=== PATIENT | female | born 1945 | race Caucasian/White ===

== ENCOUNTER → 2016-12-10 | Outpatient (CLI) | payer OTHER ==
[~2016-12-10] MED LIST: ATOR10TA82 PO; CEPH500C2 PO; OXYC-57 PO; SULF800T23 PO; VALA1TAB31 PO; VLT500 PO
--- NOTE | 2016-12-10 16:30 | MAMMOGRAPHY REPORT ---
BILATERAL DIGITAL SCREENING MAMMOGRAM TOMOSYNTHESIS WITH CAD: 12/10/2016 CLINICAL HISTORY: Routine screening. Patient has no complaints. TECHNIQUE: Breast tomosynthesis in addition to standard 2D mammography was performed. Current study was also evaluated with a Computer Aided Detection (CAD) system. COMPARISON: Comparison is made to exams dated: 12/09/2015 mammogram, 12/12/2014 mammogram, 12/12/2014 ultrasound, 12/04/2014 mammogram, 12/03/2013 mammogram, and 11/29/2012 mammogram - [facility]. BREAST COMPOSITION: There are scattered areas of fibroglandular density in both breasts. FINDINGS: No suspicious masses, calcifications, or areas of architectural distortion are noted in e ither breast. There has been no significant interval change compared to prior exams. A linear scar marker denotes a scar on the left lateral breast. Again noted are fluctuating small circumscribed b enign-appearing masses in the right breast, not significantly changed and likely represent cysts. IMPRESSION: ACR BI-RADS CATEGORY 2: BENIGN There is no mammographic evidence of malignancy. A 1 year screening mammogram is recommended. The p atient will receive written notification of the results. Approximately 10% of breast cancers are not detected with mammography. A negative mammographic repor t should not delay biopsy if a clinically suggestive mass is present. Cassie Worley M.D. ah/:12/10/2016 14:55:18 Candy Dipper Hand: Suzanne MARINA)(Aaron), [facility] letter sent: Normal 1/2 BI-RADS Code: ACR BI-RADS Category 2: Benign
== END | disposition home or self-care (01) ==
LOC: C.MAMM 09:32
PROVIDERS: ATTEND Obstetrics & Gynecology
DX: Z12.31 Encounter for screening mammogram for malignant neoplasm of breast (principal)

== ENCOUNTER → 2017-03-30 | Outpatient (CLI) | payer OTHER | END | disposition home or self-care (01) | LOC: C.LABSPEC 16:28 | PROVIDERS: ATTEND Obstetrics & Gynecology | DX: R30.0 Dysuria (principal) ==

== ENCOUNTER 2017-06-05 12:32 | Emergency (ER) | payer OTHER ==
[~2017-06-05] VITALS: Ht 154.9 cm; Wt 55.9 kg
[2017-06-05 12:34] VITALS: BP 144/85; PULSE 104; TEMP 36.4; O2SAT 94; Ht 154.9 cm; Wt 55.9 kg
--- NOTE | 2017-06-05 13:01 | EMERGENCY ROOM VISIT NOTE ---
History Report prepared by Martina: Madeline Delgado Under the Supervision of: Dr. Nelson Oglesby M.D. First contact with patient: 12:43 Chief Complaint: OTHER COMPLAINT Stated Complaint: FACE PAIN,HEADACHE,SORE THROAT History of Present Illness The patient is a 71 year old female who presents to the Emergency Room with complaints of worsening right sided facial pain that started 3 days ago. The patient rates her pain an 8/10 in severity. The patient notes the pain "feels like a tooth ache". She states the pain is primarily around her eye. She notes she gets neuralgia every month. She reports she has also been having pain in her right ear. The patient states she is also experiencing a headache and sore throat. The patient notes she has a cough but it is there all the time secondary to sinus drainage. The patient denies any nausea, vomiting, chills, fever, abdominal pain, or blurred vision. Source of History: patient Onset: 3 days ago Position: eye (right), other (right sided facial pain) Symptom Intensity: 8/10 Quality: tingling Timing: worsening Associated Symptoms: + cough, No fevers, No chills, No nausea, No vomiting, No abdominal pain Note: The patient denies experiencing blurred vision. Review of Systems See HPI for pertinent positives and negatives. A total of ten systems were reviewed and were otherwise negative. Family History No pertinent family history Social History Smoking Status: Never Smoker Smokeless Tobacco Use: No Drug Use: none Current/Historical Medications Scheduled Atorvastatin (Lipitor), 1 TAB PO QPM Valacyclovir Hcl (Valtrex), 1 GM PO TID Allergies Coded Allergies: Bee Venom (Unverified Allergy, Unknown, UNKNOWN, 06/05/17) Erythromycin (Unverified Allergy, Unknown, UNKNOWN, 06/05/17) Penicillins (Unverified Allergy, Unknown, UNKNOWN, 06/05/17) Tetracycline (Unverified Allergy, Unknown, UNKNOWN, 06/05/17) Physical Exam Vital Signs Date Time Temp Pulse Resp B/P (MAP) Pulse Ox O2 Delivery O2 Flow Rate FiO2 06/05/17 12:34 36.4 104 20 144/85 94 Room Air Physical Exam GENERAL: Awake, alert, well-appearing, in no distress HENT:TMs and EACs are clear. EYES: Mild erythematous, scaly, patches to right upper eyelid and forehead with mild pain to light touch. No gross abnormalities of eye. Anterior chamber is grossly clear. NECK: Supple. No nuchal rigidity. FROM. No JVD. RESPIRATORY: Clear to auscultation. CARDIAC: Regular rate, normal rhythm. Extremities warm and well perfused. Pulses equal. ABDOMEN: Soft, non-distended. No tenderness to palpation. No rebound or guarding. No masses. RECTAL: Deferred. MUSCULOSKELETAL: Chest examination reveals no tenderness. The back is symmetrical on inspection without obvious abnormality. There is no CVA tenderness to palpation. No joint edema. LOWER EXTREMITIES: Calves are equal size bilaterally and non-tender. No edema. No discoloration. NEURO: Normal sensorium. No sensory or motor deficits noted. SKIN: No jaundice noted. Warm/dry. Rash per above Medical Decision & Procedures Medications Administered Medications (Trade) Dose Ordered Sig/Susanne Route Start Time Stop Time Status Last Admin Dose Admin Valacyclovir HCl (Valtrex Tab) 1,000 mg NOW ONCE PO 06/05/17 13:15 06/05/17 13:16 DC 06/05/17 13:29 1,000 MG ED Course 1243: The patient was evaluated in room A12B. A complete history and physical exam was performed. 1315: Valtrex Tab 1000 mg PO. 1330: I reevaluated the patient. Discussed results and discharge instructions: she verbalized understanding and agreement. The patient is ready for discharge. Medical Decision I reviewed the patient's past medical history, medications, and the nursing notes as described above. The patient's presentation and history were concerning for Zoster, cellulitis, dermatitis. The patient is a 89-year-old woman appears [facility] with persistent right facial neuralgia and development of a scaly erythematous rash on her right eyelid and forehead history of present illness. On arrival the patient is well-appearing, no acute distress, afebrile with stable vital signs. On exam she has mild tenderness to light touch of these erythematous patches. Thus given the patients history and exam ,findings are consistent with zoster. Patient denies any vision complaints at this time and right eye is without any gross abnormalities with anterior chamber grossly clear. Will treat with antiviral and outpatient follow-up closely with her doctor. Findings and plan for follow-up reviewed with patient. Patient agreeable and d/c'd per discharge instructions. Medication Reconcilliation Current Medication List: was personally reviewed by me Blood Pressure Screening Patient's blood pressure: Elevated blood pressure Blood pressure disposition: Elevated BP felt to be situational Impression Primary Impression: Zoster without complications Scribe Attestation The scribe's documentation has been prepared under my direction and personally reviewed by me in its entirety. I confirm that the note above accurately reflects all work, treatment, procedures, and medical decision making performed by me. Departure Information Dispostion Home / Self-Care Prescriptions Valacyclovir Hcl (VALTREX) 1 Gm Tab 1 GM PO TID, #21 TAB Prov: Nelson Oglesby M.D. 06/05/17 Referrals Alissa Smyth PA-C (PCP) Patient Instructions My [facility], Shingles Herpes Zoster Additional Instructions Please follow up with your primary care physician in the next 1-3 days for re- evaluation. You likely have shingles (herpes zoster) based on your description of symptoms and exam. You were treated and given prescription for valacyclovir to treat this. Otherwise, your exam did not show signs of an emergent condition at this time. Valacyclovir as directed. Return to the emergency department for worsening symptoms as described in the accompanying instructions.
[2017-06-05] MEDS ORDERED: VALA1TAB31 PO (13:08)
[2017-06-05] MEDS ORDERED: ATOR10TA82 PO (13:27)
== END 2017-06-05 13:32 | disposition home or self-care (01) ==
LOC: C.EDB 12:33 → C.EDA 13:32
DX: B02.39 Other herpes zoster eye disease (principal)

== ENCOUNTER 2017-06-13 10:55 | Inpatient (IN) | payer OTHER ==
[~2017-06-13] VITALS: Ht 154.9 cm; Wt 55.1 kg
[~2017-06-13 10:55] MED LIST changes: -CEPH500C2 PO; -OXYC-57 PO; -SULF800T23 PO; -VLT500 PO
[2017-06-13 11:57] LABS: BASO % 0.3 %; BASO ABS # 0.03 K/uL (0-0.2); COMPLETE YES; EOS % 0.7 %; HEMATOCRIT 42.2 % (37-47); IG% 0.4 %; LYMPH % 12.7 %; LYMPH ABS # 1.35 K/uL (1.2-3.4); MEAN CELL VOLUME 91.1 fL (80-100); MEAN CORPUSCULAR HEMOGLOBIN 31.3 pg (25-34); MEAN CORPUSCULAR HGB CONC 34.4 g/dl (32-36); MEAN PLATELET VOLUME 11.1 fL (7.4-10.4); MONO % 7.6 %; NEUT % 78.3 %; PLATELET COUNT 333 K/uL (130-400); RED BLOOD COUNT 4.63 M/uL (4.2-5.4); WHITE BLOOD COUNT 10.67 K/uL (4.8-10.8)
[2017-06-13] MEDS ORDERED: CEFTRIAXONE SOD INJ 1 GM ADDVIAL IV STA (11:57)
[2017-06-13] MEDS ORDERED: ATOR10TA82 PO (12:00)
[2017-06-13 12:17] LABS: BUN/CREATININE RATIO 8.8 (10-20); CALCIUM 8.8 mg/dl (8.5-10.1); CREATININE 1.25 mg/dl (0.60-1.20); POTASSIUM 3.2 mmol/L (3.5-5.1)
--- NOTE | 2017-06-13 13:07 | DIAGNOSTIC IMAGING REPORT ---
L HAND MIN 3 VIEWS ROUTINE CLINICAL HISTORY: Left first metacarpal swelling, pain and cellulitis. No recent trauma. COMPARISON: None FINDINGS: There is severe osteoarthritis of the left first carpometacarpal joint. There is also severe osteoarthritis within multiple interphalangeal joints of the left hand. No fracture or suspicious lesion is present. There is moderate radiocarpal joint space narrowing. Carpal bones are intact. Multifocal soft tissue calcifications are noted. IMPRESSION: 1. Severe osteoarthritis of the left first carpometacarpal joint. 2. Severe osteoarthritis within multiple interphalangeal joints of the left hand. This could reflect erosive osteoarthritis. 3. No acute fracture. Electronically signed by: Adrian Boone M.D. 06/13/2017 1:06 PM Dictated Date/Time: 06/13/2017 1:04 PM
[2017-06-13] MEDS ORDERED: ACETAMINOPHEN 325 MG TAB PO PRN (14:00)
[2017-06-13] MEDS ORDERED: KETOROLAC TROMETHAMINE 15 MG/ML VIAL IV. PRN (14:00)
[2017-06-13] MEDS ORDERED: OXYCODONE/ACETAMINOPHEN 5-325 TAB PO PRN (14:00)
[2017-06-13] MEDS ORDERED: ONDANSETRON INJ 2 MG/ML 2 ML VIAL IV PRN (14:00)
[2017-06-13] MEDS ORDERED: VANCOMYCIN CONSULT ACTIVE PRN (14:30)
[2017-06-13] MEDS ORDERED: VANCOMYCIN INJ 1,500 MG in SODIUM CHLORIDE 0.9% 500ML 500 ML IV ONE (14:30)
--- NOTE | 2017-06-13 15:05 | HISTORY & PHYSICAL EXAMINATION ---
DATE OF ADMISSION: 06/13/2017 REASON FOR ADMISSION: Left thumb cellulitis, rule out septic arthritis. HISTORY OF PRESENT ILLNESS: The patient is a 71-year-old white female known to our practice who states that she gets regular injections into her left MP joint from Dr. Guan and/or Chencho Mac PA-C for her arthritis. She states that her last injection was approximately 2-3 weeks ago and since that time, she was not having any problems; however, over the last week, she had developed a herpes zoster on the top of her head and forehead and almost down into her right eye. She had begun treatment for that on June 05 and it has been slowly getting better. She states, however, that she noticed some increased discomfort in the left thumb over the last several days and has been wearing a brace and/or glove for her left hand and thumb over the past. She states that when she took off the brace this morning that the thumb was very bright red and that she had difficulty moving the left thumb at the MP joint. She went into see her primary care physician, who is Frank Gilbert and at that point she noticed some red streaking up the forearm and had her come to the emergency room here to be seen. After examination and discussion with Dr. Guan, it was felt she should be admitted for IV antibiotics. PAST MEDICAL HISTORY: Hypercholesterolemia, osteoporosis, history of arthritis, breast cancer. PAST SURGICAL HISTORY: She has had breast biopsy and also carpal tunnel release with also repair of a lacerated tendon of the right hand by Dr. Guan in the past. FAMILY HISTORY: Noncontributory. SOCIAL HISTORY: The patient is a nonsmoker, does not drink alcohol. MEDICATIONS: She is currently taking atorvastatin 10 mg p.o. daily and she has also been prescribed Valtrex. ALLERGIES: BEE VENOM, ERYTHROMYCIN, PENICILLINS, TETRACYCLINE. REVIEW OF SYSTEMS: No recent fevers or chills or night sweats or unexplained weight loss or weight gain. She states that she does have a history of a postnasal drainage which she contributes to sinuses and that she has had a little bit of increased sputum production when she was being treated for her zoster; however, that seems to have abated. She denies any shortness of breath on exertion or at rest. No chest pain, chest pressure, irregular heartbeat. No abdominal pain. No unusual nausea, vomiting, diarrhea. No melena, hematochezia, hematemesis. No recent hematuria, pyuria, dysuria or renal calculi. No history of CVA, TIA. No seizure disorder. PHYSICAL EXAMINATION: VITAL SIGNS: Her latest vital signs showed pulse is 97, respirations 16, BP 140/81, pulse ox 98 on room air. GENERAL: The patient is a well-developed, well-nourished white female who is alert and oriented x3 and in no acute distress, pleasant and cooperative. SKIN: Warm and dry. Turgor is fair. EXTREMITIES: She has noted healing zoster rash over the top of her head coming down over the forehead and spreading a little bit to the right eyelid itself. She denies any severe pain at this time and denies any vision changes. HEENT: The head is otherwise normocephalic and atraumatic. There is no scleral icterus or injection. Nasal airway is patent. Oral mucosa is pink and moist. NECK: Supple. HEART: Regular rate and rhythm. LUNGS: Clear to auscultation. ABDOMEN: Soft, flat, nontender. Bowel sounds are present x4. GENITALIA AND RECTAL: Not performed at this time. EXTREMITIES: On examination of the patient's left upper extremity focusing on her hand, she has moderate erythema over the left thumb that stops just shy of the first DIP joint then goes proximally to almost the wrist and stops. She has erythema on the dorsum and also on the volar aspect and is quite tender on palpation. Passive extension and flexion cause her pain in the left MP joint. She states that it does not radiate up into the forearm. She does have good capillary refill and good sensation. Wrist range of motion is within normal limits without pain. Examination of the other 4 fingers is benign at this time and she has good range of motion and range of motion is limited with the thumb at this time, although she can move her DIP joint with some limited discomfort. She has some noted red streaking going up the forearm to the elbow. This area is nontender on palpation and is not overtly swollen. She has no pain in the elbow at this time and has good range of motion. Her right upper extremity is benign at this time and has range of motion within normal limits. Left shoulder is nontender on palpation and range of motion is within normal limits. Lower extremities are benign at this time. She has no gross motor or sensory deficits seen at this time other than noted decreased range of motion of the thumb due to cellulitis and infection. DIAGNOSIS: Cellulitis left thumb with rule out metaphalangeal joint septic arthritis. PLAN: I discussed the case with Dr. Guan who feels that it is best to have the patient admitted for IV antibiotics at this time and reassessment at 1024 hours. We will make her n.p.o. after midnight and if she is responding well to IV antibiotics, then likely she will not need to have any type of possible exploratory surgery of the joint; however, she continues to maintain the same pain or it worsens she will have to undergo irrigation and debridement of the left MP joint. ISABELLE
--- NOTE | 2017-06-13 15:18 | EMERGENCY ROOM VISIT NOTE ---
History First contact with patient: 11:37 Chief Complaint: INFECTION Stated Complaint: LEFT THUMB-IV ANTIBIOTICS NEEDED Nursing Triage Summary: Pt got up this morning and took arthritis brace off of left hand and found her left thumb to be reddened with red streaking going up her arm. Went to PCP was told she possibly had septic arthrits, told to come to ED for further eval. History of Present Illness The patient is a 71 year old female who presents to the Emergency Room with complaints of left hand pain and redness. The patient also notes the following associated symptoms, streaking up the forearm to above the elbow. This started yesterday and is worsening rapidly. The patient has found no relieving factors. She saw her PCP and was directed here. Pt denies LOC, headache, fevers, chills, diaphoresis, visual changes, neck pain, chest pain, breathing difficulties, nausea, vomiting, abdominal pain, back pain, melena, hematochezia , urinary symptoms, numbness, weakness, lymphadenopathy, or other complaints. Review of Systems See HPI for pertinent positives and negatives. A total of ten systems were reviewed and were otherwise negative. Past Medical/Surgical History Medical Problems: (1) Cellulitis of left thumb (2) rule out septic joint arthritis Family History No pertinent family history Social History Smoking Status: Never Smoker Drug Use: none Current/Historical Medications Scheduled Atorvastatin (Lipitor), 10 MG PO QDD Physical Exam Vital Signs Date Time Temp Pulse Resp B/P (MAP) Pulse Ox O2 Delivery O2 Flow Rate FiO2 06/13/17 14:43 104 16 154/100 95 Room Air 06/13/17 13:42 97 06/13/17 13:35 98 16 140/81 98 Room Air 06/13/17 12:21 80 20 120/64 94 Room Air 06/13/17 11:03 36.5 107 18 134/74 92 Room Air Physical Exam GENERAL: Awake, alert, well-appearing, in no distress HENT: Normocephalic, atraumatic. Oropharynx unremarkable. EYES: Normal conjunctiva. Sclera non-icteric. NECK: Supple. No nuchal rigidity. FROM. No JVD. RESPIRATORY: Clear to auscultation. CARDIAC: Regular rate, normal rhythm. Extremities warm and well perfused. Pulses equal. ABDOMEN: Soft, non-distended. No tenderness to palpation. No rebound or guarding. No masses. RECTAL: Deferred. MUSCULOSKELETAL: Chest examination reveals no tenderness. There is tenderness and swelling over the left first metacarpal and carpal metacarpal joint. Range of motion of the left thumb is limited. Neurovascular intact. No open wounds. There is streaking up the left forearm to above the left antecubital fossa. LOWER EXTREMITIES: Calves are equal size bilaterally and non-tender. No edema. No discoloration. NEURO: Normal sensorium. No sensory or motor deficits noted. SKIN: No petechia, purpura, vesicles, bullae or jaundice noted. Medical Decision & Procedures ER Provider Diagnostic Interpretation: L HAND MIN 3 VIEWS ROUTINE CLINICAL HISTORY: Left first metacarpal swelling, pain and cellulitis. No recent trauma. COMPARISON: None FINDINGS: There is severe osteoarthritis of the left first carpometacarpal joint. There is also severe osteoarthritis within multiple interphalangeal joints of the left hand. No fracture or suspicious lesion is present. There is moderate radiocarpal joint space narrowing. Carpal bones are intact. Multifocal soft tissue calcifications are noted. IMPRESSION: 1. Severe osteoarthritis of the left first carpometacarpal joint. 2. Severe osteoarthritis within multiple interphalangeal joints of the left hand. This could reflect erosive osteoarthritis. 3. No acute fracture. Electronically signed by: Adrian Boone M.D. 06/13/2017 1:06 PM Dictated Date/Time: 06/13/2017 1:04 PM Laboratory Results 06/13/17 11:40 Red Blood Count 4.63, Mean Corpuscular Volume 91.1, Mean Corpuscular Hemoglobin 31.3, Mean Corpuscular Hemoglobin Concent 34.4, Mean Platelet Volume 11.1, Neutrophils (%) (Auto) 78.3, Lymphocytes (%) (Auto) 12.7, Monocytes (%) (Auto) 7.6, Eosinophils (%) (Auto) 0.7, Basophils (%) (Auto) 0.3, Neutrophils # (Auto) 8.36, Lymphocytes # (Auto) 1.35, Monocytes # (Auto) 0.81, Eosinophils # (Auto) 0.08, Basophils # (Auto) 0.03 06/13/17 11:40 Test 06/13/17 11:40 06/13/17 11:48 White Blood Count 10.67 K/uL (4.8-10.8) Red Blood Count 4.63 M/uL (4.2-5.4) Hemoglobin 14.5 g/dL (12.0-16.0) Hematocrit 42.2 % (37-47) Mean Corpuscular Volume 91.1 fL (80-100) Mean Corpuscular Hemoglobin 31.3 pg (25-34) Mean Corpuscular Hemoglobin Concent 34.4 g/dl (32-36) Platelet Count 333 K/uL (130-400) Mean Platelet Volume 11.1 fL (7.4-10.4) Neutrophils (%) (Auto) 78.3 % Lymphocytes (%) (Auto) 12.7 % Monocytes (%) (Auto) 7.6 % Eosinophils (%) (Auto) 0.7 % Basophils (%) (Auto) 0.3 % Neutrophils # (Auto) 8.36 K/uL (1.4-6.5) Lymphocytes # (Auto) 1.35 K/uL (1.2-3.4) Monocytes # (Auto) 0.81 K/uL (0.11-0.59) Eosinophils # (Auto) 0.08 K/uL (0-0.5) Basophils # (Auto) 0.03 K/uL (0-0.2) RDW Standard Deviation 42.6 fL (36.4-46.3) RDW Coefficient of Variation 12.9 % (11.5-14.5) Immature Granulocyte % (Auto) 0.4 % Immature Granulocyte # (Auto) 0.04 K/uL (0.00-0.02) Erythrocyte Sedimentation Rate 45 mm/hr (0-21) Anion Gap 8.0 mmol/L (3-11) Est Creatinine Clear Calc Drug Dose 32.0 ml/min Estimated GFR () 50.8 Estimated GFR (Non- 43.9 BUN/Creatinine Ratio 8.8 (10-20) Calcium Level 8.8 mg/dl (8.5-10.1) Total Bilirubin 0.7 mg/dl (0.2-1) Direct Bilirubin 0.2 mg/dl (0-0.2) Aspartate Amino Transf (AST/SGOT) 9 U/L (15-37) Alanine Aminotransferase (ALT/SGPT) 13 U/L (12-78) Alkaline Phosphatase 81 U/L (45-117) C-Reactive Protein 1.71 mg/dl (0-0.29) Total Protein 7.8 gm/dl (6.4-8.2) Albumin 3.6 gm/dl (3.4-5.0) Bedside Lactic Acid Venous 1.09 mmol/L (0.90-1.70) Medications Administered Medications (Trade) Dose Ordered Sig/Susanne Route Start Time Stop Time Status Last Admin Dose Admin Ceftriaxone Sodium (Rocephin Inj) 1 gm NOW STAT IV 06/13/17 11:57 06/13/17 11:59 DC 06/13/17 12:22 1 GM Vancomycin HCl 1500 mg/Sodium Chloride 530 ml @ 200 mls/hr NOW ONCE IV 06/13/17 14:30 06/13/17 17:08 06/13/17 14:46 200 MLS/HR Medical Decision Triage Nursing notes reviewed. The patient's presentation and history were concerning for swelling and redness in the hand. Etiologies such as cellulitis, septic joint, abscess, MRSA infection, dermatitis , drug eruption,necrotizing fasciitis, DVT as well as others were entertained. The patient was evaluated. Her findings were concerning for a cellulitis as well as arthritis. She had a previous injection in that site about 3 weeks ago by [facility]. Blood work was obtained. Cultures done. The patient was given a dose of IV Rocephin and tolerated this well. I did consult with Tucker Glover PA-C from [facility] and he evaluated the patient in the Emergency Room. He discussed the case with Dr. Mckeon and it was felt that the patient would be just treated coming into the hospital for IV antibiotics and further orthopedic consultation. Her CBC was unremarkable but she did have a left shift on differential. Inflammatory markers were elevated. Chemistry panel unremarkable. Patient felt comfortable with the plan. She was admitted for further treatment. Impression Primary Impression: Cellulitis of left thumb Additional Impression: rule out septic joint arthritis Departure Information Dispostion Being Evaluated By Surgeon Alissa Lazcano PA-C (PCP) Patient Instructions My [facility] Problem Qualifiers
[2017-06-13 15:30] VITALS: BP 164/77; PULSE 106; TEMP 36.4; O2SAT 95; Ht 154.9 cm; Wt 55.1 kg
--- NOTE | 2017-06-13 15:55 | Pharmacy Progress Note ---
Pharmacy Antibiotic Consult Date of Service: Jun 13, 2017. Pharmacy Dosing Scope Pharmacy is consulted to initiate vancomycin IV dosing therapy, order appropriate labs and adjust drug dose/frequency. Subjective The patient is a 71 year old female admitted on Jun 13, 2017 at 13:57. Objective Height (Feet): 5 Height (Inches): 1.00 Weight (Kilograms): 55.100 Lab Results (24hrs): Test 06/13/17 11:40 06/13/17 11:48 White Blood Count 10.67 K/uL (4.8-10.8) Red Blood Count 4.63 M/uL (4.2-5.4) Hemoglobin 14.5 g/dL (12.0-16.0) Hematocrit 42.2 % (37-47) Mean Corpuscular Volume 91.1 fL (80-100) Mean Corpuscular Hemoglobin 31.3 pg (25-34) Mean Corpuscular Hemoglobin Concent 34.4 g/dl (32-36) Platelet Count 333 K/uL (130-400) Mean Platelet Volume 11.1 fL (7.4-10.4) Neutrophils (%) (Auto) 78.3 % Lymphocytes (%) (Auto) 12.7 % Monocytes (%) (Auto) 7.6 % Eosinophils (%) (Auto) 0.7 % Basophils (%) (Auto) 0.3 % Neutrophils # (Auto) 8.36 K/uL (1.4-6.5) Lymphocytes # (Auto) 1.35 K/uL (1.2-3.4) Monocytes # (Auto) 0.81 K/uL (0.11-0.59) Eosinophils # (Auto) 0.08 K/uL (0-0.5) Basophils # (Auto) 0.03 K/uL (0-0.2) RDW Standard Deviation 42.6 fL (36.4-46.3) RDW Coefficient of Variation 12.9 % (11.5-14.5) Immature Granulocyte % (Auto) 0.4 % Immature Granulocyte # (Auto) 0.04 K/uL (0.00-0.02) Erythrocyte Sedimentation Rate 45 mm/hr (0-21) Sodium Level 141 mmol/L (136-145) Potassium Level 3.2 mmol/L (3.5-5.1) Chloride Level 103 mmol/L (98-107) Carbon Dioxide Level 30 mmol/L (21-32) Anion Gap 8.0 mmol/L (3-11) Blood Urea Nitrogen 11 mg/dl (7-18) Creatinine 1.25 mg/dl (0.60-1.20) Est Creatinine Clear Calc Drug Dose 32.0 ml/min Estimated GFR () 50.8 Estimated GFR (Non- 43.9 BUN/Creatinine Ratio 8.8 (10-20) Random Glucose 102 mg/dl (70-99) Calcium Level 8.8 mg/dl (8.5-10.1) Total Bilirubin 0.7 mg/dl (0.2-1) Direct Bilirubin 0.2 mg/dl (0-0.2) Aspartate Amino Transf (AST/SGOT) 9 U/L (15-37) Alanine Aminotransferase (ALT/SGPT) 13 U/L (12-78) Alkaline Phosphatase 81 U/L (45-117) C-Reactive Protein 1.71 mg/dl (0-0.29) Total Protein 7.8 gm/dl (6.4-8.2) Albumin 3.6 gm/dl (3.4-5.0) Bedside Lactic Acid Venous 1.09 mmol/L (0.90-1.70) Assessment & Plan Patient started on vancomycin for left thumb cellulitis, r/o septic arthritis. Blood cultures are pending. Received rocephin x 1 in ED Vancomycin: * LD of 1500 mg (~27 mg/kg) iv x 1 given in the ED * Will start MD of vancomycin 750 mg (~14 mg/kg) iv q 24 hrs to achieve an estimated trough ~15-20 mcg/ml * Estimated kinetics: t1/2~22 hrs, ke~0.03 hr-1, CrCl ~32 ml/min * Will plan to obtain a trough prior to the 1400 dose on 06/16 to ensure therapeutic Pharmacy will continue to follow and will adjust dose/frequency as necessary. Thank you
[2017-06-13] MEDS: D5W AND 1/2NSS 1,000 ML IV SCH (18:41)
[2017-06-13 23:13] VITALS: BP 147/80; PULSE 77; TEMP 36.9; O2SAT 95
[2017-06-14] MEDS: D5W AND 1/2NSS 1,000 ML IV SCH ×2 (06:12→21:13)
[2017-06-14 07:20] VITALS: BP 152/83; PULSE 74; TEMP 36.4; O2SAT 95
--- NOTE | 2017-06-14 07:39 | Orthopedic Progress Note ---
Orthopedic Progress Note Date of Service Jun 14, 2017. Subjective Additional Notes: Overall she states the thumb hurts a bit less today but is still painful. No new complaints. Objective Left thumb continues with erythema and pain with palpation/manipulation. Pain is mainly at the PIP joint this AM. Not so much at the MP joint this AM. Red striation up the forearm appears to be lessening a bit. Date Time Temp Pulse Resp B/P (MAP) Pulse Ox O2 Delivery O2 Flow Rate FiO2 06/13/17 23:50 Room Air 06/13/17 23:13 36.9 77 18 147/80 (102) 95 Room Air 06/13/17 17:50 Room Air 06/13/17 15:30 36.4 106 17 164/77 95 Room Air 06/13/17 14:43 104 16 154/100 95 Room Air 06/13/17 13:42 97 06/13/17 13:35 98 16 140/81 98 Room Air 06/13/17 12:21 80 20 120/64 94 Room Air 06/13/17 11:03 36.5 107 18 134/74 92 Room Air Laboratory Results 24 Hours: Test 06/13/17 11:40 White Blood Count 10.67 K/uL Red Blood Count 4.63 M/uL Hemoglobin 14.5 g/dL Hematocrit 42.2 % Mean Corpuscular Volume 91.1 fL Mean Corpuscular Hemoglobin 31.3 pg Mean Corpuscular Hemoglobin Concent 34.4 g/dl Platelet Count 333 K/uL Mean Platelet Volume 11.1 fL Neutrophils (%) (Auto) 78.3 % Lymphocytes (%) (Auto) 12.7 % Monocytes (%) (Auto) 7.6 % Eosinophils (%) (Auto) 0.7 % Basophils (%) (Auto) 0.3 % Neutrophils # (Auto) 8.36 K/uL Lymphocytes # (Auto) 1.35 K/uL Monocytes # (Auto) 0.81 K/uL Eosinophils # (Auto) 0.08 K/uL Basophils # (Auto) 0.03 K/uL Assessment & Plan Assessment: ? infection PIP/MP joint of left thumb. Plan: Pt seen with Dr Guan this AM Plan for MRI of the left thumb Orlando Gillespie
[2017-06-14 08:10] LABS: CREATININE 1.1 mg/dl (0.60-1.20)
[2017-06-14] MEDS: CEFTRIAXONE SOD INJ 1 GM in DEXTROSE 5% ADD-VANTAGE 50ML 50 ML IV SCH (08:44)
[2017-06-14 12:22] LABS: HEMATOCRIT 39.7 % (37-47); MEAN CELL VOLUME 90.8 fL (80-100); MEAN CORPUSCULAR HEMOGLOBIN 30.9 pg (25-34); MEAN PLATELET VOLUME 11.3 fL (7.4-10.4); PLATELET COUNT 355 K/uL (130-400); RED BLOOD COUNT 4.37 M/uL (4.2-5.4); WHITE BLOOD COUNT 12.32 K/uL (4.8-10.8)
[2017-06-14] MEDS: VANCOMYCIN INJ 750 MG in SODIUM CHLORIDE 0.9% 250ML 250 ML IV SCH (13:20)
[2017-06-14 15:17] VITALS: BP 163/71; PULSE 76; TEMP 36.7; O2SAT 94
[2017-06-15] MEDS ORDERED: GADAVIST IV PRN (00:15)
[2017-06-15 00:53] VITALS: BP 139/77; PULSE 86; TEMP 36.6; O2SAT 92
--- NOTE | 2017-06-15 06:48 | DIAGNOSTIC IMAGING REPORT ---
L UPPER EXT NONJOINT COMBO CLINICAL HISTORY: r/o septic joint left thumb pain. Edema. TECHNIQUE: Multiaxial MRI acquisition COMPARISON STUDY: None FINDINGS: Significant degenerative changes of the intercarpal as well as carpal metacarpal joints throughout. Erosive changes are identified at the distal aspects of the articular regions of all osseous structures visualized. There is no evidence, however for a true bone marrow replacing process. Findings of mild soft tissue edema about the thenar eminence as well as first metacarpophalangeal region. Although components of this related to degenerative change, underlying cellulitis is considered. No evidence for abscess or collection. There is no evidence for drainable process. IMPRESSION: 1. Findings of generalized soft tissue edema and/or cellulitis about the thumb as well as the thenar eminence. 2. No evidence for drainable abscess or collection. 3. No evidence for osteomyelitis. 4. Considerable degenerative change throughout The above report was generated using voice recognition software. It may contain grammatical, syntax or spelling errors. Electronically signed by: Chencho Boggs M.D. 06/15/2017 6:47 AM Dictated Date/Time: 06/15/2017 6:39 AM
[2017-06-15 07:05] LABS: CREATININE 1.04 mg/dl (0.60-1.20)
--- NOTE | 2017-06-15 07:26 | Orthopedic Progress Note ---
Orthopedic Progress Note Date of Service Jun 15, 2017. Subjective Reports: feeling well Additional Notes: Feels that hand is a little better. States that she developed bruising on the thumb after the MRI? No new complaints. MRI neg for abscess, collection, or Osteomyelitis. Objective capillary refill less than 2 sec., A&O x3, CMS intact Erythema less today. Striation on forearm slowly disappearing. Still with difficulty moving the thumb at the PIP joint. Bruising noted over the PIP area that was not there before. States it developed after moving her thumb around a lot during MRI positioning? Date Time Temp Pulse Resp B/P (MAP) Pulse Ox O2 Delivery O2 Flow Rate FiO2 06/15/17 00:53 36.6 86 18 139/77 (97) 92 Room Air 06/15/17 00:45 Room Air 06/14/17 15:40 Room Air 06/14/17 15:17 36.7 76 16 163/71 (101) 94 Room Air 06/14/17 07:40 Room Air 06/14/17 07:20 36.4 74 15 152/83 (106) 95 Room Air Laboratory Results 24 Hours: Test 06/14/17 11:50 06/15/17 07:03 Hematocrit 39.7 % Hemoglobin 13.5 g/dL Additional Notes: MRI results: IMPRESSION: 1. Findings of generalized soft tissue edema and/or cellulitis about the thumb as well as the thenar eminence. 2. No evidence for drainable abscess or collection. 3. No evidence for osteomyelitis. 4. Considerable degenerative change throughout Assessment & Plan Assessment: Cellulitis Left thumb Plan: Continue IV antibx Will consult ID team for antibx recommendations per Dr Guan
[2017-06-15 07:38] LABS: HEMATOCRIT 39.6 % (37-47); MEAN CELL VOLUME 91.2 fL (80-100); MEAN CORPUSCULAR HEMOGLOBIN 30.9 pg (25-34); MEAN CORPUSCULAR HGB CONC 33.8 g/dl (32-36); MEAN PLATELET VOLUME 11.3 fL (7.4-10.4); PLATELET COUNT 364 K/uL (130-400); RED BLOOD COUNT 4.34 M/uL (4.2-5.4); WHITE BLOOD COUNT 12.33 K/uL (4.8-10.8)
[2017-06-15 07:47] LABS: BUN/CREATININE RATIO 7.5 (10-20); CALCIUM 8.6 mg/dl (8.5-10.1); CREATININE 1.06 mg/dl (0.60-1.20)
[2017-06-15 08:02] VITALS: BP 113/70; PULSE 80; TEMP 36.4; O2SAT 92
[2017-06-15] MEDS: CEFTRIAXONE SOD INJ 1 GM in DEXTROSE 5% ADD-VANTAGE 50ML 50 ML IV SCH (08:11)
[2017-06-15 08:37] VITALS: O2SAT 92
[2017-06-15] MEDS: D5W AND 1/2NSS 1,000 ML IV SCH ×2 (09:58→22:32)
[2017-06-15] MEDS: VANCOMYCIN INJ 750 MG in SODIUM CHLORIDE 0.9% 250ML 250 ML IV SCH (13:34)
--- NOTE | 2017-06-15 14:44 | Medical Consult ---
Consultation Date of Consultation: Jun 15, 2017. Attending Physician: Rafal Guan D.O. Reason for Consultation: Antibiotic recommendations, cellulitis left thumb History of Present Illness 71-year-old female with history of osteoarthritis who receives occasional injections to her left hand and thumb, recently diagnosed with T1 zoster with improvement with Valtrex therapy, now admitted to the hospital with several days of progressively worsening erythema and swelling around the base of the left thumb and thenar evidence, with subsequent lymphangitis streaking up left arm. She has been started on vancomycin and ceftriaxone and has shown improvement. Cultures are negative to date. MRI shows no obvious deep space infection currently afebrile. Pain is minimal. Past Medical/Surgical History Medical Problems: (1) Zoster without complications Status: Acute PAST MEDICAL HISTORY: Hypercholesterolemia, osteoporosis, history of arthritis, breast cancer. PAST SURGICAL HISTORY: She has had breast biopsy and also carpal tunnel release with also repair of a lacerated tendon of the right hand by Dr. Guan in the past. Family History No pertinent family history Social History Smoking Status: Never Smoker Drug Use: none Allergies Coded Allergies: Bee Venom (Unverified Allergy, Unknown, UNKNOWN, 06/13/17) Erythromycin (Unverified Allergy, Unknown, UNKNOWN, 06/13/17) Penicillins (Unverified Allergy, Unknown, UNKNOWN, 06/13/17) Tetracycline (Unverified Allergy, Unknown, UNKNOWN, 06/13/17) Current Inpatient Medications Current Inpatient Medications Medications (Trade) Dose Ordered Sig/Susanne Route Start Time Stop Time Status Last Admin Dose Admin Oxycodone/ Acetaminophen (Percocet 5-325mg Tab) `1-2 TABS FOR PAIN `1 TAB... Q4H PRN PO 06/13/17 14:00 06/27/17 13:59 Ketorolac Tromethamine (Toradol Inj) 15 mg Q6 PRN IV. 06/13/17 14:00 06/16/17 13:59 Acetaminophen (Tylenol Tab) 650 mg Q6H PRN PO 06/13/17 14:00 07/13/17 13:59 Ondansetron HCl (Zofran Inj) 4 mg Q6H PRN IV 06/13/17 14:00 07/13/17 13:59 Dextrose/Sodium Chloride 1,000 ml @ 75 mls/hr [id number] IV 06/13/17 13:50 07/13/17 13:49 06/15/17 09:58 75 MLS/HR Vancomycin HCl 750 mg/Sodium Chloride 265 ml @ 125 mls/hr Q24H IV 06/14/17 14:00 07/25/17 13:59 06/15/17 13:34 125 MLS/HR Vancomycin HCl (Consult) 1 ea UD PRN N/A 06/13/17 14:30 07/13/17 14:29 Ceftriaxone Sodium 1 gm/ Dextrose 50 ml @ 100 mls/hr Q24H IV 06/14/17 08:00 07/26/17 07:59 06/15/17 08:11 100 MLS/HR Gadobutrol (Gadavist) 5.5 mmol UD PRN IV 06/15/17 00:15 06/19/17 00:14 Review of Systems All systems were reviewed and are negative except as per HPI Physical Exam Date Time Temp Pulse Resp B/P (MAP) Pulse Ox O2 Delivery O2 Flow Rate FiO2 06/15/17 08:37 92 Room Air 06/15/17 08:02 36.4 80 20 113/70 (84) 92 Room Air 06/15/17 07:15 Room Air 06/15/17 00:53 36.6 86 18 139/77 (97) 92 Room Air 06/15/17 00:45 Room Air 06/14/17 15:40 Room Air 06/14/17 15:17 36.7 76 16 163/71 (101) 94 Room Air General Appearance: WD/WN, no apparent distress Head: normocephalic, atraumatic Eyes: normal inspection, EOMI, sclerae normal ENT: normal ENT inspection, pharynx normal Neck: supple, no adenopathy, thyroid normal, trachea midline Respiratory/Chest: chest non-tender, lungs clear, normal breath sounds, no respiratory distress Cardiovascular: regular rate, rhythm, no gallop, no murmur Abdomen/GI: normal bowel sounds, non tender, soft, no organomegaly Back: normal inspection, no CVA tenderness Extremities/Musculoskelatal: no calf tenderness, normal capillary refill Neurologic/Psych: alert, normal mood/affect, oriented x 3 Skin: normal color, no rash, + pertinent finding (Erythema with swelling at the base of the left thumb with central bruising, with lymphangitic streak now fading up left arm) Lymphatic: no adenopathy Laboratory Results RUN DATE: 06/15/17 [facility] LAB PAGE 1 RUN TIME: 0700 Specimen Inquiry PATIENT: ARABELLA HARPER LOC: [facility] U # : [id number] AGE/SX: 71/F ROOM: [facility] REG : 06/13/[address]: Rafal Guan D.O. : 1945 BED: 2 DIS : STATUS: ADM IN TLOC: SPEC #: [id number] CASSIE: 06/13/17 STATUS: RES REQ #: [id number] RECD: 06/13/[address] [facility] [address]: Mark Crum MD SOURCE: BLOOD ENTR: 06/13/[address] [facility] DR: Alissa Smyth PA-C SPDESC: ORDERED: BLOOD CULTURE COMMENTS: Comments to Application Development Consultant SAME TIME DIFFERENT SITES Procedure Result Verified Site BLD CULT Preliminary 06/15/17-699 NO GROWTH TO DATE. Last 24 Hours Test 06/15/17 05:57 White Blood Count 12.33 K/uL Red Blood Count 4.34 M/uL Hemoglobin 13.4 g/dL Hematocrit 39.6 % Mean Corpuscular Volume 91.2 fL Mean Corpuscular Hemoglobin 30.9 pg Mean Corpuscular Hemoglobin Concent 33.8 g/dl RDW Standard Deviation 43.1 fL RDW Coefficient of Variation 13.1 % Platelet Count 364 K/uL Mean Platelet Volume 11.3 fL Sodium Level 143 mmol/L Potassium Level 3.0 mmol/L Chloride Level 108 mmol/L Carbon Dioxide Level 25 mmol/L Anion Gap 10.0 mmol/L Blood Urea Nitrogen 8 mg/dl Creatinine 1.06 mg/dl Est Creatinine Clear Calc Drug Dose 37.8 ml/min Estimated GFR () 62.0 Estimated GFR (Non- 53.5 BUN/Creatinine Ratio 7.5 Random Glucose 122 mg/dl Calcium Level 8.6 mg/dl Patient Name: ARABELLA HARPER Unit Number: [id number] Dictated: 06/15/17638 Transcribed: 06/15/17638 MS Printed Date/Time: [~ rep prt dt]/[~ rep prt tm] [~ rep ct labl] - [~ rep ct ivnm] [facility] Radiology Department [place] [address] Dictated: 06/15/17638 Transcribed: 06/15/17638 MS Printed Date/Time: [~ rep prt dt]/[~ rep prt tm] [~ rep ct labl] - [~ rep ct ivnm] L UPPER EXT NONJOINT COMBO CLINICAL HISTORY: r/o septic joint left thumb pain. Edema. TECHNIQUE: Multiaxial MRI acquisition COMPARISON STUDY: None FINDINGS: Significant degenerative changes of the intercarpal as well as carpal metacarpal joints throughout. Erosive changes are identified at the distal aspects of the articular regions of all osseous structures visualized. There is no evidence, however for a true bone marrow replacing process. Findings of mild soft tissue edema about the thenar eminence as well as first metacarpophalangeal region. Although components of this related to degenerative change, underlying cellulitis is considered. No evidence for abscess or collection. There is no evidence for drainable process. IMPRESSION: 1. Findings of generalized soft tissue edema and/or cellulitis about the thumb as well as the thenar eminence. 2. No evidence for drainable abscess or collection. 3. No evidence for osteomyelitis. 4. Considerable degenerative change throughout The above report was generated using voice recognition software. It may contain grammatical, syntax or spelling errors. Electronically signed by: Chencho Boggs M.D. 06/15/2017 6:47 AM Dictated Date/Time: 06/15/2017 6:39 AM The status of this report is Signed. Draft = Not yet reviewed or approved by Radiologist. Signed = Reviewed and approved by Radiologist. <AttendingPhy>Rafal Guan D.O.</AttendingPhy> <FamilyPhy>Alissa Smyth PA-C</FamilyPhy> <PrimaryPhy>Alissa Smyth PA-C</PrimaryPhy> < UnitNumber>[id number]</UnitNumber> <VisitNumber>[id number]</VisitNumber> < PatientName>MEREDITHARABELLA Nichol</PatientName> <DateOfBirth>1945</DateOfBirth> < Location>[facility]</Location> <ServiceDate>06/13/17</ServiceDate> <MNE>ESINDI</MNE> <OrderingPhy>[place] E PAC</OrderingPhy> <OrderingPhyMNE>f rep ord dr lares</OrderingPhyMNE> <DictatingPhyMNE>f rep dict dr lares</DictatingPhyMNE> < CCListMNE>f rep ct mne</CCListMNE> <AdmittingPhyMNE>f pt admit dr lares</ AdmittingPhyMNE> <AttendingPhyMNE>f pt attend dr lares</AttendingPhyMNE> <ConsultingPhyMNE>f pt consult dr lares</ConsultingPhyMNE> <FamilyPhyMNE>f pt fam dr lares</FamilyPhyMNE> <OtherPhyMNE>f pt other dr lares</OtherPhyMNE> < PrimaryPhyMNE>f pt prim care dr lares</PrimaryPhyMNE> <ReferringPhyMNE>f pt referring dr lares</ReferringPhyMNE> Assessment & Plan Cellulitis of the left hand with lymphangitis involving the left arm, suspect this is streptococcal, appears to be responding to antibiotics. Patient can likely be transitioned to oral antibiotics in the next 24-48 hours, and would recommend combination of cephalexin and Bactrim. Will follow.
[2017-06-15 14:58] VITALS: BP 121/64; PULSE 92; TEMP 36.7; O2SAT 95
--- NOTE | 2017-06-15 18:24 | Discharge Instructions ---
Discharge Instructions Date of Service Jun 16, 2017. Admission Reason for Admission: Cellulitis Of Left Thumb,R/O Septic Joint Arthriti Discharge Discharge Diagnosis / Problem: cellulitis of left thumb Discharge Goals Goal(s): Decrease discomfort, Improve function Activity Recommendations Activity Limitations: as noted below . Instructions / Follow-Up Instructions / Follow-Up ACTIVITY RECOMMENDATIONS: * Avoid lifting anything heavier than a medium water glass until your follow up in the office in 1 week. SPECIAL CARE INSTRUCTIONS: * If possible, keep your hand elevated above the level of your heart as much as possible to help with swelling. * You should move your fingers regularly (50-100 motions per hour) unless otherwise instructed. SPECIAL PRECAUTIONS: * If you notice increased drainage, fever over 101 degrees F. or severe, unremitting pain, call your physician/office at . * You may have been prescribed pain medication. If you experience nausea and/or skin rash, discontinue this medication and contact our office for an alternative medication. FOLLOW UP VISIT: If appointment is not already scheduled, call [facility] [place] to make a follow-up appointment at for 7-10 days from now. Current Hospital Diet Patient's current hospital diet: Regular Diet Discharge Diet Recommended Diet: Regular Diet Pending Studies Studies pending at discharge: no Medical Emergencies . Who to Call and When: Medical Emergencies: If at any time you feel your situation is an emergency, please call [phone] immediately. . Non-Emergent Contact Non-Emergency issues call your: Primary Care Provider, Surgeon . "Provider Documentation" section prepared by Chencho Mac. . VTE Core Measure Inpt VTE Proph given/why not?: Treatment not indicated [place] Drug Monitoring Program Search Results: patient reviewed within database, no issues identified
[2017-06-15 22:49] VITALS: BP 154/68; PULSE 73; TEMP 37.2; O2SAT 98
[2017-06-16 07:08] VITALS: BP 150/75; PULSE 71; TEMP 36.9; O2SAT 96
[2017-06-16 07:15] VITALS: O2SAT 96
[2017-06-16 07:22] LABS: CREATININE 1.04 mg/dl (0.60-1.20)
[2017-06-16] MEDS: CEFTRIAXONE SOD INJ 1 GM in DEXTROSE 5% ADD-VANTAGE 50ML 50 ML IV SCH (07:43)
--- NOTE | 2017-06-16 09:08 | Orthopedic Progress Note ---
Orthopedic Progress Note Date of Service Jun 16, 2017. Subjective Reports: feeling well, pain controlled w PO medications, Denies: complaints, chest pain, SOB, nausea / vomiting, light headedness, calf pain Objective capillary refill less than 2 sec., A&O x3 overall redness improving, NVDI, able to wiggle fingers, radial/median/ulnar nerves intact. ecchymosis noted over base of thumb Date Time Temp Pulse Resp B/P (MAP) Pulse Ox O2 Delivery O2 Flow Rate FiO2 06/16/17 07:15 96 Room Air 06/16/17 07:08 36.9 71 19 150/75 (100) 96 Room Air 06/15/17 23:45 Room Air 06/15/17 22:49 37.2 73 18 154/68 (96) 98 Room Air 06/15/17 15:30 Room Air 06/15/17 14:58 36.7 92 16 121/64 (83) 95 Room Air Assessment & Plan Assessment: Cellulitis Left thumb Plan: ID Consult for Cellulitis of the left hand with lymphangitis involving the left arm, suspect this is streptococcal, appears to be responding to antibiotics. Will likely be transitioned to oral antibiotics in the next 24-48 hours, and would recommend combination of cephalexin and Bactrim. Will see how she responds over the next 24 hours.
[2017-06-16] MEDS: D5W AND 1/2NSS 1,000 ML IV SCH (11:53)
[2017-06-16] MEDS ORDERED: NURSING VERBAL MED ORDER ONE (12:45)
[2017-06-16] MEDS ORDERED: VANCOMYCIN TROUGH ONE (13:30)
[2017-06-16] MEDS: D5W AND 1/2NSS + 20MEQ KCL 1000 ML IV SCH (14:16)
[2017-06-16] MEDS: VANCOMYCIN INJ 750 MG in SODIUM CHLORIDE 0.9% 250ML 250 ML IV SCH (14:21)
--- NOTE | 2017-06-16 14:50 | Pharmacy Progress Note ---
Pharmacy Abx Dose Progress Nt Date of Service Jun 16, 2017. Pharmacy Dosing Scope The patient is currently receiving the following antimicrobial agents per Pharmacy consult: Vancomycin 750 mg IV every 24 hours Objective Height (Feet): 5 Height (Inches): 1.00 Weight (Kilograms): 55.100 Vital Signs (Past 12Hrs) Vital Signs Past 12 Hours Date Time Temp Pulse Resp B/P (MAP) Pulse Ox O2 Delivery O2 Flow Rate FiO2 06/16/17 07:15 96 Room Air 06/16/17 07:08 36.9 71 19 150/75 (100) 96 Room Air Lab Results (24Hrs) Test 06/13/17 11:40 06/13/17 11:48 06/14/17 11:50 06/15/17 05:57 Immature Granulocyte % (Auto) 0.4 White Blood Count 10.67 12.32 12.33 Red Blood Count 4.63 4.37 4.34 Hemoglobin 14.5 13.5 13.4 Hematocrit 42.2 39.7 39.6 Mean Corpuscular Volume 91.1 90.8 91.2 Mean Corpuscular Hemoglobin 31.3 30.9 30.9 Mean Corpuscular Hemoglobin Concent 34.4 34.0 33.8 Platelet Count 333 355 364 Mean Platelet Volume 11.1 11.3 11.3 Neutrophils (%) (Auto) 78.3 Lymphocytes (%) (Auto) 12.7 Monocytes (%) (Auto) 7.6 Eosinophils (%) (Auto) 0.7 Basophils (%) (Auto) 0.3 Neutrophils # (Auto) 8.36 Lymphocytes # (Auto) 1.35 Monocytes # (Auto) 0.81 Eosinophils # (Auto) 0.08 Basophils # (Auto) 0.03 Immature Granulocyte # (Auto) 0.04 Erythrocyte Sedimentation Rate 45 Sodium Level 141 143 Potassium Level 3.2 3.0 Chloride Level 103 108 Carbon Dioxide Level 30 25 Anion Gap 8.0 10.0 Blood Urea Nitrogen 11 8 BUN/Creatinine Ratio 8.8 7.5 Random Glucose 102 122 Calcium Level 8.8 8.6 Total Bilirubin 0.7 Direct Bilirubin 0.2 Aspartate Amino Transferase (AST) 9 Alanine Aminotransferase (ALT) 13 Alkaline Phosphatase 81 C-Reactive Protein 1.71 Total Protein 7.8 Albumin 3.6 POC Lactic Acid Venous 1.09 RDW Standard Deviation 42.1 43.1 RDW Coefficient of Variation 12.9 13.1 Creatinine 1.06 Est Creatinine Clear Calc Drug Dose 37.8 Estimated GFR () 62.0 Estimated GFR (Non- 53.5 Test 06/16/17 06:18 06/16/17 13:12 Creatinine 1.04 Est Creatinine Clear Calc Drug Dose 38.5 Estimated GFR () 63.5 Estimated GFR (Non- 54.8 Vancomycin Level Trough 6.9 Micro Results Date/Time Source Procedure Growth Status 06/13/17 12:06 Blood Blood Culture - Preliminary NO GROWTH TO DATE. Resulted 06/13/17 11:40 Blood Blood Culture - Preliminary NO GROWTH TO DATE. Resulted Risk Factors for Resistance * Antimicrobial use within the last 90 days = T1 zoster with improvement with Valtrex therapy, on 500mg PO BID at this time Assessment & Plan Assessment 71 year old female receiving Vancomycin and Rocephin IV for treatment of cellulitis and lymphangitis involving the left arm Day # 4 of antimicrobial therapy Spoke with Dr Jha regarding Vancomycin subtherapeutic level and possible transition to oral antibiotics, Dr Jha would like patient to continue to receive IV Vancomycin at this time and see patient tomorrow for further evaluation. Plan Vancomycin IV * Trough level of 6.9 mcg/mL is subtherapeutic. * Change to Vancomycin 1000 mg (18mg/kg) IV every 14 hours * Goal trough level for cellulitis: ~15mcg/mL * Trough level ordered for: 06/18/17 prior to 0400 dose * More aggressive dosing at this time for increased WBC, subtherapeutic trough, and need to be therapeutic for transition to orals for discharge Pharmacy will continue to follow and will adjust dose/frequency as necessary. Thank you.
[2017-06-16 15:34] VITALS: BP 163/64; PULSE 83; TEMP 36.7; O2SAT 97
[2017-06-16] MEDS ORDERED: NURSING DECISION MEDICATION ORDER SCH (19:15)
[2017-06-16] MEDS ORDERED: ARTIFICIAL TEARS OP SOLN OP PRN ×2 (19:30)
[2017-06-16 23:13] VITALS: BP 167/68; PULSE 79; TEMP 36.7; O2SAT 93
[2017-06-16 23:42] VITALS: BP 146/71
[2017-06-17] MEDS ORDERED: VANCOMYCIN INJ 1,000 MG in SODIUM CHLORIDE 0.9% 250ML 250 ML IV SCH ×2
[2017-06-17] MEDS: D5W AND 1/2NSS + 20MEQ KCL 1000 ML IV SCH (03:36)
[2017-06-17 06:30] LABS: BUN/CREATININE RATIO 5.9 (10-20); CALCIUM 8.2 mg/dl (8.5-10.1); CREATININE 1.02 mg/dl (0.60-1.20); POTASSIUM 3.1 mmol/L (3.5-5.1)
[2017-06-17 07:10] VITALS: BP 160/71; PULSE 82; TEMP 36.8; O2SAT 96
[2017-06-17] MEDS: CEFTRIAXONE SOD INJ 1 GM in DEXTROSE 5% ADD-VANTAGE 50ML 50 ML IV SCH (07:35)
--- NOTE | 2017-06-17 07:45 | Orthopedic Progress Note ---
Orthopedic Progress Note Date of Service Jun 17, 2017. Subjective Reports: feeling well, pain controlled w PO medications, Denies: complaints, chest pain, SOB, nausea / vomiting, light headedness, calf pain Additional Notes: thumb pain improving, able to move without pain Objective N/V intact, capillary refill less than 2 sec., A&O x3 redness decreased, no tenderness into forearm, minimal tenderness mcp joint. Date Time Temp Pulse Resp B/P (MAP) Pulse Ox O2 Delivery O2 Flow Rate FiO2 06/17/17 07:10 36.8 82 17 160/71 (100) 96 Room Air 06/16/17 23:42 146/71 (96) 06/16/17 23:30 Room Air 06/16/17 23:13 36.7 79 16 167/68 (101) 93 Room Air 06/16/17 16:00 Room Air 06/16/17 15:34 36.7 83 17 163/64 (97) 97 Room Air Assessment & Plan Assessment: Cellulitis Left thumb Plan: ID Consult for Cellulitis of the left hand with lymphangitis involving the left arm, suspect this is streptococcal, appears to be responding to antibiotics. responding well to PO Abx, will discharge home later today with PO Abx, f/u in office in 1 week, sooner if s/s worsening.
[2017-06-17] MEDS ORDERED: CEPH500C2 PO (07:48)
[2017-06-17] MEDS ORDERED: SULF800T23 PO (07:48)
[2017-06-17] MEDS ORDERED: VLT500 PO (07:48)
[2017-06-17] MEDS ORDERED: OXYC-57 PO (07:48)
--- NOTE | 2017-06-17 08:13 | DISCHARGE SUMMARY ---
ADMITTING DIAGNOSIS: Left thumb cellulitis. ADMITTING PHYSICIAN: Dr. Gilbert Guan. HPI: Upon hospital admission, patient is a 71-year-old female who gets regular injections into her CMC joint of her left thumb. She was given injection approximately a month ago and stated that initially after the injection her thumb was doing well. She then developed a herpes zoster rash to the top of her head and forehead down along her right temporal region. She began treatment for that on June 05 and states that it has slowly been getting better. However, the couple days leading up to her hospital admission noticed increased discomfort into her left thumb and redness. She went to see her family physician Dr. Yoder who at that point noticed a streaking up into her left forearm and was advised to come to the Emergency Room. After examination in the Emergency Room, the patient was admitted for IV antibiotics. CONSULTATIONS: Dr. Wilian Jha Infectious Disease. DISCHARGE MEDICATIONS: 1. Keflex 500 mg p.o. t.i.d. 2. Percocet 5/325 1-2 tablets every 6 hours as needed for pain. 3. Bactrim-DS 1 tablet p.o. b.i.d. 4. Valacyclovir 500 mg p.o. b.i.d. 5. Lipitor 10 mg daily. HOSPITAL COURSE: Valentine was admitted from the Emergency Department on 06/13/2017 and started on IV antibiotics of vancomycin. She responded well over the next few days. Redness decreased. Her pain improved. Streaking into her forearm had also decreased. Of note MRI was obtained to rule out septic joint, findings of a generalized soft tissue edema and cellulitis about the thumb as well as thenar eminence, but no evidence of drainable abscess or collection. No evidence for osteomyelitis and considerable degenerative changes noted throughout. At that point, surgical intervention was not indicated and was continued on IV antibiotics. At this point in time, symptoms are improving. Her pain and redness are also improving. At this point, she is felt to stable for discharge home on p.o. Keflex and Bactrim. DISCHARGE INSTRUCTIONS. 1. Medications as directed above. 2. Continue to ice, elevate thumb. Allow use of the thumb as tolerated, but avoid overuse or strenuous activities. 3. Monitor for signs and symptoms of infection including increased redness, warmth, streaking fevers or chills. 4. The patient was advised to contact the office on Tuesday for followup evaluation within 1 week. The patient otherwise has no other questions or concerns and at this point is felt stable for discharge to home on p.o. antibiotics.
[2017-06-17 09:29] VITALS: BP 160/71; PULSE 82; TEMP 36.8; O2SAT 96
[2017-06-18] MEDS ORDERED: VANCOMYCIN TROUGH ONE (03:30)
== END 2017-06-17 12:54 | disposition home or self-care (01) | DRG 603 ==
LOC: C.EDB 10:58 → C.MSN 13:57 → ENRESERV 14:45
PROVIDERS: ADMIT Orthopaedic Surgery; ATTEND Orthopaedic Surgery
DX: L03.114 Cellulitis of left upper limb (principal); E78.00 Pure hypercholesterolemia, unspecified; M81.0 Age-related osteoporosis without current pathological fracture; Z85.3 Personal history of malignant neoplasm of breast; Z88.0 Allergy status to penicillin; B95.5 Unspecified streptococcus as the cause of diseases classified elsewhere

== ENCOUNTER → 2017-09-28 | Outpatient (CLI) | payer OTHER ==
[~2017-09-28] MED LIST changes: +OXYC-57 PO; -VALA1TAB31 PO; +VLT500 PO
--- NOTE | 2017-09-28 12:50 | DIAGNOSTIC IMAGING REPORT ---
ULTRASOUND OF THE CAROTID ARTERIES CLINICAL HISTORY: ATHEROSCLEROSIS,HYPERLIPIDEMIA COMPARISON STUDY: None. TECHNIQUE: Real-time, grayscale, and color Doppler sonography of the carotid arteries was performed. Imaging reviewed in the transverse and longitudinal planes. NASCET criteria was utilized for stenosis calcification. FINDINGS: There is mild to moderate atherosclerotic plaque present . The peak systolic velocity within the right internal carotid artery is 105 cm/sec. The systolic velocity ratio of right internal to common carotid artery is 1.3. The peak systolic velocity within the left internal carotid artery is 173 cm/sec. The systolic velocity ratio left internal to common carotid artery is 1.2. Antegrade flow is seen in the vertebral arteries. The external carotid arteries are patent. IMPRESSION: Atheromatous plaquing. No evidence of hemodynamically significant carotid stenosis. Electronically signed by: Matthew Whitt M.D. 09/28/2017 12:49 PM Dictated Date/Time: 09/28/2017 12:47 PM
== END | disposition home or self-care (01) ==
LOC: C.ULTR 11:54
PROVIDERS: ATTEND Physician Assistant
DX: I65.21 Occlusion and stenosis of right carotid artery (principal); E78.2 Mixed hyperlipidemia

== ENCOUNTER 2019-02-05 07:30 | Inpatient (IN) ==
--- NOTE | 2019-01-30 11:41 | Anesthesiology Consultation ---
Date of Service January 30, 2019 Assessment & Plan (1) Encounter for pre-operative examination: - No previous anesthesia records available. - Attempted to obtain records from [facility] surgery center re: sedation that may have caused agitation on 06/30/18. Spoke with medical records twice, who agreed to fax this to us, but it was never received. - Patient is cleared pending PCP clearance. Chart Review Chart Review: Acceptable Risk for Surgery (Pending PCP clearance) and Patient seen in Pre Admission Testing Consults Requested medical (Gillian LIN (02/01)) Teaching & Discussion Pre-Anesthesia Teaching/Discussion Notes: Instructed NPO after midnight before surgery, except medications with 15 cc of water. Medication instructions provided according to the PAT guidelines. History Surgery Operation Date: 02/05/19 08:40 Proposed Procedures p Bilateral Breast Mastectomy with Left [place] Lymph Node Biopsy (Injection Only) - Sampson Armijo MD, FACS Height/Weight Height: 5 ft 1.5 in Weight: 56 kg Allergies Allergy/AdvReac Type Severity Reaction Status Date / Time bee venom protein (honey bee) Allergy Unknown LOCALIZED Unverified 01/29/19 15:30 SWELLING erythromycin base Allergy Unknown HALLUCINATE Verified 01/29/19 15:30 Penicillins Allergy Unknown CHILD Unverified 01/29/19 15:30 tetracycline Allergy Unknown Hives Unverified 01/29/19 15:30 Medications Home Medications Medication Instructions Recorded Confirmed Last Taken aspirin [Aspirin Low Dose] 81 mg PO QDD 04/24/18 01/29/19 Unknown acetaminophen 500 mg PO Q6H PRN 01/29/19 01/29/19 Unknown atorvastatin 40 mg PO QDD 01/29/19 01/29/19 Unknown ergocalciferol (vitamin D2) 50,000 unit PO WK 01/29/19 01/29/19 Unknown [Vitamin D2] Past Medical History Medical History Arthritis BREAST - CURRENT ISSUE Cancer THIS IS SECOND BOUT OF CANCER Hx of vertigo Hypercholesterolemia Osteoporosis Presence of pessary Vitamin D deficiency Exercise / Class Metabolic Activity II 4-5 Yardwork/Stairs/Walk up hill (Walks daily. Tends to house. Has steps in house that she climbs frequently. Has trouble with knees, but denies CP or SOB. ) Past Family History Family History Mother Family history of diabetes mellitus Family/Other Family history of diabetes mellitus Past Surgical History Surgical History History of anesthesia reaction DESCRIBES THAT SHE WAS TOLD HAD AGITATION WHEN SHE WAS SEDATED FOR HAND SURGERY AT [facility] - 2018 History of carpal tunnel release RIGHT History of lumpectomy of left breast Hx of eye surgery REMOVAL OF CYST Hx of hand surgery LEFT Hx of hysterectomy, total Hx of tonsillectomy Hx of vaginal surgery TO DILATE CERVIX Hx of wisdom tooth extraction Past Anesthesia History No Hx of Anesthesia Complications (Other than agitation in 06/2018) and No Family Hx of Anesthesia Complications History of PONV No Hx of PONV and Hx of Motion Sickness (On boats) Social History Smoking Status: Never smoker Do You Dip or Chew Tobacco: No Hx Alcohol Use: No Hx Substance Use: No Review of Systems Patient denies chest pain, shortness of breath, dyspnea on exertion, cough, wheezing, palpitations. +Joint Pain (Knees, Hands) +Acid Reflux (Diet related) Physical Exam Vital Signs BP: 127/60 P: 72 R: 16 T: 98.2 SPO2: 96% on RA ENMT Mouth: + small oral opening Thyromental Distance: < 3.5 Finger Breadths (3) Mallampati Class: II Neck normal visual inspection, trachea midline and + limited neck extension Respiratory normal respiratory effort Auscultation: lungs clear to auscultation bilaterally Cardiovascular Rate/Rhythm: regular rate and regular rhythm Heart Sounds: no murmur Vessels: no carotid bruit Neurologic moves all extremities Psychiatric Orientation: alert and oriented x 3 Testing Laboratory Results 01/30/19 12:33 01/30/19 12:33 Electrocardiogram Date: 01/30/19 Findings: + NSR @ (63) and + no change from (05/23/18) Other Testing US carotid doppler BI 10/10/18 HISTORY: Carotid stenosis CAROTID ARTERY ATHEROSCLEROSIS FINDINGS: Antegrade flow is seen in the bilateral vertebral arteries. The brachial pressures are hemodynamically similar. Moderate plaque formation bilaterally The peak systolic velocity within the right ICA is 103. The right systolic ratio is 1.5. The peak systolic velocity within the left ICA is 155. The left systolic ratio is 2.1. Incidental note is made of moderate velocity increase mid left subclavian artery IMPRESSION: 1. 50 present stenosis left internal carotid artery. 2. No significant stenotic process right carotid system. 3. Possible moderate stenosis mid left subclavian artery.
--- NOTE | 2019-01-30 11:41 | PAT Medication Instructions ---
Medication Instructions Date of Service January 30, 2019 Home Medications aspirin [Aspirin Low Dose] 81 mg PO QDD acetaminophen 500 mg PO Q6H NEEDED atorvastatin 40 mg PO QDD ergocalciferol (vitamin D2) [Vitamin D2] 50,000 unit PO WK Continue as directed ergocalciferol (vitamin D2) [Vitamin D2] 50,000 unit PO WK ASK your surgeon for instructions aspirin [Aspirin Low Dose] 81 mg PO QDD Take morning of surgery With a small sip of water, OTHERWISE NOTHING TO EAT OR DRINK AFTER MIDNIGHT: acetaminophen 500 mg PO Q6H NEEDED (if needed; stop 4 hours before surgery) Take evening before surgery acetaminophen 500 mg PO Q6H NEEDED (if needed) atorvastatin 40 mg PO QDD Other Notes If you have any questions please call us at [phone] or [phone] or [phone] or [phone]
[2019-01-30 13:31] LABS: Basophils # (auto) 0.02 K/uL (0-0.2); Basophils % (auto) 0.3 %; Eosinophils # (auto) 0.11 K/uL (0-0.5); Eosinophils % (auto) 1.5 %; Hematocrit (blood only) 41.3 % (37-47); Hemoglobin 13.8 g/dL (12.0-16.0); Immature Granulocytes # (auto) 0.01 K/uL (0.00-0.02); Immature Granulocytes % (auto) 0.1 %; Lymphocytes # (auto) 1.86 K/uL (1.2-3.4); Mean Corpuscular Hgb Conc 33.4 g/dL (32-36); Mean Platelet Volume 11.6 fL (7.4-10.4); Monocytes # (auto) 0.74 K/uL (0.11-0.59); Neutrophils # (auto) 4.69 K/uL (1.4-6.5); Neutrophils % (auto) 63.1 %; Platelet Count 256 K/uL (130-400); RDW Coefficient of Variation 13.7 % (11.5-14.5); RDW Standard Deviation 44.1 fL (36.4-46.3); Red Blood Count 4.64 M/uL (4.2-5.4); White Blood Count 7.43 K/uL (4.8-10.8)
[2019-01-30 14:40] LABS: BUN Creatinine Ratio 15.7 (10-20); Calcium 9.2 mg/dl (8.5-10.1); Creatinine Clr Calc Pharmacy 39.9 ml/min; Est GFR (African American) 65.6; Est GFR (Non-African American) 56.6; Potassium 4.3 mmol/L (3.5-5.1)
[~2019-02-05 07:30] MED LIST changes: -ATOR10TA82 PO; +CEFAZOLIN 2000MG 2,000 MG/15 ML SYR IV SCH; +LR 15ML/HR IV SCH; -OXYC-57 PO; -VLT500 PO
--- NOTE | 2019-02-05 08:46 | Nuclear Medicine Report ---
NM sentinel node inject only (left breast) CLINICAL HISTORY: Left Breast DCIS, Hx of Right Breast Ca W/NM INJ COMPARISON STUDY: No previous studies for comparison. FINDINGS: A timeout was performed. The skin was anesthetized with topical hydrochloride Five perilesional left breast intradermal injections were performed utilizing a total dose of 0.56 mC i of technetium 99m Lymphoseek. The patient was sent to the operating room for intraoperative localiz ation. IMPRESSION: Successful left breast lymphoscintigraphy injection. Electronically signed by: Matthew Whitt M.D. 02/05/2019 8:44 AM
--- NOTE | 2019-02-05 09:15 | History & Physical Bridge Note ---
Date of Service February 05, 2019 History & Physical Bridge Note I have examined the patient, reviewed the History & Physical and in the interval since the performance of the History & Physical I have noted the following changes of clinical significance: no changes noted pt is for Bilateral mastectomy with Lt sentinel lymph node bx
[2019-02-05] MEDS ORDERED: ISOSULFAN BLUE 10 MG/ML VIAL 5 ML ONE (10:47)
[2019-02-05] MEDS ORDERED: BUPIVACAINE 0.5 % 5 MG/1 ML MPF 30ML VIAL ONE (10:47)
[2019-02-05] MEDS ORDERED: LIDOCAINE HCL 2% 2 ML VIAL/AMP(20MG/ML) INFIL ONE (10:50)
[2019-02-05] MEDS ORDERED: LARYING-O-JET KIT (LTA) ONE (10:50)
[2019-02-05] MEDS ORDERED: fentaNYL citrate 100 MCG/2 ML VIAL ONE ×3 (10:50→12:26)
[2019-02-05] MEDS ORDERED: PROPOFOL IV EMULSION 10 MG/ML 20 ML VIAL IV ONE (10:50)
[2019-02-05] MEDS ORDERED: HydrALAZINE HCL 20 MG/ML VIAL ONE (12:00)
--- NOTE | 2019-02-05 12:47 | Operative Report ---
Post Operative Report Pre & Post Diagnosis Operation Date: 02/05/19 10:10 Pre-Op Diagnosis: Left Breast DCIS, History of Right Breast Cancer W/NM INJ Post-Op Diagnosis: Left Breast DCIS, History of Right Breast Cancer W/NM INJ Procedure Operation Date: 02/05/19 10:10 Actual Procedures p Bilateral Breast Mastectomy with Left [place] Lymph Node Biopsy (Injection Only) - Sampson Armijo MD, FACS Surgeon Sampson Armijo MD, FACS Multi Purpose Machine Operator Lisbet Denny Estimated Blood Loss 20 Findings Consistent with Post-Op Diagnosis Specimens Right and Lt breasts w/ Lt axillary lymph nodes Description of Procedure see dictation I attest to the content of the Intraoperative Record and any orders documented therein. Any exceptions are noted below.
[2019-02-05] MEDS ORDERED: ACETAMINOPHEN 1,000 MG/100 ML VIAL IV ONE (12:53)
[2019-02-05] MEDS ORDERED: HYDROmorphone INJ 1 MG/ML SYRINGE ONE ×2 (13:52→14:22)
[2019-02-05] MEDS ORDERED: LABETALOL HCL IV 5 MG/ML 20ML IV ONE (13:57)
[2019-02-05] MEDS ORDERED: ONDANSETRON INJ 2 MG/ML 2 ML VIAL ONE (14:09)
[2019-02-05] MEDS ORDERED: ONDANSETRON INJ 2 MG/ML 2 ML VIAL IV PRN ×2 (14:15→15:30)
[2019-02-05] MEDS ORDERED: PROMETHAZINE HCL 12.5 MG in SODIUM CHLORIDE 0.9% 50 ML IV PRN ×2 (14:15→15:30)
[2019-02-05] MEDS ORDERED: FLUMAZENIL 0.1 MG/1 ML 10 ML VIAL IV PRN (14:15)
[2019-02-05] MEDS ORDERED: ePHEDrine sulfate 50 MG/ML AMP IV PRN (14:15)
[2019-02-05] MEDS ORDERED: LABETALOL HCL IV 5 MG/ML 20ML IV PRN (14:15)
[2019-02-05] MEDS ORDERED: ATROPINE SULFATE 0.1 MG/ML 10ML SYR IV PRN (14:15)
[2019-02-05] MEDS ORDERED: NALOXONE HCL 0.4 MG/1 ML VIAL/CARP IV PRN (14:15)
[2019-02-05] MEDS: HYDROmorphone INJ 1 MG/ML SYRINGE IV PRN ×2 (14:17→14:25)
--- NOTE | 2019-02-05 14:56 | Anesthesiology Progress Note ---
Date of Service February 05, 2019 Anesthesia Post Procedure Vital Signs Vital Signs: Temp Pulse Pulse Pulse Resp BP BP 02/05/19 14:54 36.6 C 02/05/19 14:45 60 12 157/63 H 02/05/19 14:40 56 L 14 149/62 H 02/05/19 14:35 36.4 C L 60 13 167/66 H 02/05/19 14:30 55 L 12 161/63 H 02/05/19 14:25 60 16 167/66 H 02/05/19 14:20 64 16 154/64 H 02/05/19 14:15 63 14 190/69 H 02/05/19 14:10 62 14 178/70 H 02/05/19 14:05 63 15 02/05/19 14:00 77 14 167/61 H 02/05/19 13:55 74 12 176/68 H 02/05/19 13:50 73 14 180/71 H 02/05/19 13:45 71 14 189/68 H 02/05/19 13:40 73 20 203/70 H 02/05/19 13:35 70 15 197/79 H 02/05/19 13:30 75 12 180/67 H 02/05/19 13:26 76 14 186/64 H 02/05/19 13:25 75 14 02/05/19 13:21 36.0 C L 72 72 14 164/79 H 02/05/19 08:39 36.7 C 64 18 154/69 H BP Pulse Ox 02/05/19 14:54 100 02/05/19 14:45 100 02/05/19 14:40 100 02/05/19 14:35 100 02/05/19 14:30 100 02/05/19 14:25 92 02/05/19 14:20 96 02/05/19 14:15 97 02/05/19 14:10 98 02/05/19 14:05 92 02/05/19 14:00 97 02/05/19 13:55 99 02/05/19 13:50 100 02/05/19 13:45 100 02/05/19 13:40 100 02/05/19 13:35 100 02/05/19 13:30 100 02/05/19 13:26 100 02/05/19 13:25 100 02/05/19 13:21 164/79 H 100 02/05/19 08:39 93 Pain Intensity Chest: Pain Intensity: 4 Transfer of Care Handoff Completed per policy Notes Mental Status: alert / awake / arousable Patient Amnestic to Procedure: Yes Nausea / Vomiting: adequately controlled Pain: adequately controlled Airway Patency, RR, SpO2: stable & adequate BP & HR: stable & adequate Hydration State: stable & adequate Anesthetic Complications: no major complications apparent
[2019-02-05] MEDS ORDERED: SODIUM CHLORIDE 0.9% 1000ML 1,000 ML IV SCH (15:30)
[2019-02-05] MEDS ORDERED: ACETAMINOPHEN 500 MG TAB PO PRN (15:30)
[2019-02-05] MEDS ORDERED: HYDROCODONE/ACETAMOPHEN 5/325MG TAB PO PRN ×2 (15:30)
[2019-02-05] MEDS ORDERED: MoRPHine SULFATE 2 MG/ML CARP IV PRN ×2 (15:30)
[2019-02-05] MEDS: ATORVASTATIN 40 MG TAB PO SCH (18:14)
[2019-02-05] MEDS: CEFAZOLIN 1000MG 1,000 MG/7.5 ML SYR IV SCH (18:15)
--- NOTE | 2019-02-05 19:58 | Consultation ---
Date of Consultation February 05, 2019 Assessment & Plan (1) Breast cancer: s/p b/l mastectomy with left-sided sentinel lymph node biopsy by Dr Armijo today. defer post-op management to Dr Armijo (fluids, pain control, d/c planning, etc). Present on Admission?: Yes (2) Mixed hyperlipidemia: Cont lipitor at home dosing. Present on Admission?: Yes (3) Neuralgia: right forehead, due to prior shingles episode in 2017. She would benefit from lyrica or gabapentin. Will discuss this with her prior to d/c home. Present on Admission?: Yes (4) DVT prophylaxis: defer to Dr Armijo Thank you for this consult. Will follow with you. History of Present Illness Requesting Physician: Sampson Armijo MD Reason for Consultation: post-op medical management Attending Physician: Sampson Armijo MD, [facility] History of Present Illness 73yo female with recently diagnosed left-sided breast cancer who presented today for elective bilateral mastectomy and left- sided sentinel lymph node dissection. I saw her post-op on the surgical floor. She c/o chest wall pain but no substernal chest pain. No dyspnea. She has intermittent, occasional right-sided facial neuralgia from prior shingles in 2017. Able to eat a little food for dinner tonight. Allergies Allergy/AdvReac Type Severity Reaction Status Date / Time bee venom protein (honey bee) Allergy Unknown LOCALIZED Verified 02/05/19 08:38 SWELLING Penicillins Allergy Unknown CHILD Verified 02/05/19 08:38 tetracycline Allergy Unknown Hives Verified 02/05/19 08:38 erythromycin base AdvReac Unknown HALLUCINATE Verified 02/05/19 12:59 Home Medications Home Medications Medication Instructions Recorded Confirmed Type aspirin [Aspirin Low Dose] 81 mg PO QDD 04/24/18 02/05/19 History acetaminophen 500 mg PO Q6H PRN 01/29/19 02/05/19 History atorvastatin 40 mg PO QDD 01/29/19 02/05/19 History ergocalciferol (vitamin D2) 50,000 unit PO WK 01/29/19 02/05/19 History [Vitamin D2] Patient History Medical History Arthritis BREAST - CURRENT ISSUE Cancer THIS IS SECOND BOUT OF CANCER Hx of vertigo Osteoporosis Presence of pessary Vitamin D deficiency Hypercholesterolemia Surgical History History of anesthesia reaction DESCRIBES THAT SHE WAS TOLD HAD AGITATION WHEN SHE WAS SEDATED FOR HAND SURGERY AT [facility] - 2018 History of lumpectomy of left breast Hx of eye surgery REMOVAL OF CYST Hx of hand surgery LEFT Hx of hysterectomy, total Hx of tonsillectomy Hx of vaginal surgery TO DILATE CERVIX Hx of wisdom tooth extraction History of carpal tunnel release RIGHT Family History Mother Family history of diabetes mellitus Family/Other Family history of diabetes mellitus Social History Preferred Language: Welsh Communication Ability: Effective Beliefs That Will Affect Care: None marital status: Current Living Situation: Spouse current occupational status: retired Feels Safe at Home: Yes Safety Concerns: Feels Safe At This Time Smoking Status: Never smoker Do You Dip or Chew Tobacco: No Second Hand Exposure: Yes ( CHILD, AT WORK AND HOME) Hx Alcohol Use: No Hx Substance Use: No Review of Systems Constitutional: no fever Ear, Nose, Mouth, Throat: no sore throat and no dysphagia Respiratory: no cough and no dyspnea Cardiovascular: as per Subjective / HPI and + chest pain; no dyspnea at rest, no orthopnea and no paroxysmal nocturnal dyspnea Gastrointestinal: no abdominal pain, no nausea and no vomiting Physical Exam Constitutional: + thin; no acute distress and no altered mental status Eyes: PERRL ENMT: external ear and nose normal, oropharynx normal Neck: trachea midline, no thyromegaly Respiratory: normal respiratory effort, lungs clear to auscultation Cardiovascular: Rate/Rhythm: regular rate and regular rhythm Heart Sounds: normal S1 and normal S2; no murmur Vessels: posterior tibial pulses present and dorsalis pedis pulses present; no JVD Extremities: no edema Chest (Breasts): Additional Comments: large JENY wrap dressing intact to chest wall; NASREEN drains in place Gastrointestinal (Abdomen): normal bowel sounds, soft, nontender, no hepatosplenomegaly Skin: no rashes, warm and dry Psychiatric: A+Ox3, euthymic affect Results & Data Vital Signs (Past 12 Hours) Vital Signs Temp Pulse Pulse Pulse Resp BP BP 02/05/19 18:24 36.3 C L 62 16 02/05/19 17:28 36.4 C L 59 L 18 02/05/19 16:20 73 17 02/05/19 15:52 36.4 C L 62 17 02/05/19 15:10 68 21 02/05/19 15:05 60 12 02/05/19 15:00 59 L 14 149/58 H 02/05/19 14:55 59 L 14 162/67 H 02/05/19 14:54 36.6 C 02/05/19 14:50 59 L 15 140/60 02/05/19 14:45 60 12 157/63 H 02/05/19 14:40 56 L 14 149/62 H 02/05/19 14:35 36.4 C L 60 13 167/66 H 02/05/19 14:30 55 L 12 161/63 H 02/05/19 14:25 60 16 167/66 H 02/05/19 14:20 64 16 154/64 H 02/05/19 14:15 63 14 190/69 H 02/05/19 14:10 62 14 178/70 H 02/05/19 14:05 63 15 02/05/19 14:00 77 14 167/61 H 02/05/19 13:55 74 12 176/68 H 02/05/19 13:50 73 14 180/71 H 02/05/19 13:45 71 14 189/68 H 02/05/19 13:40 73 20 203/70 H 02/05/19 13:35 70 15 197/79 H 02/05/19 13:30 75 12 180/67 H 02/05/19 13:26 76 14 186/64 H 02/05/19 13:25 75 14 02/05/19 13:21 36.0 C L 72 72 14 164/79 H 02/05/19 08:39 36.7 C 64 18 154/69 H BP Pulse Ox 02/05/19 18:24 168/68 H 97 02/05/19 17:28 154/72 H 98 02/05/19 16:20 161/68 H 96 02/05/19 15:52 154/65 H 92 02/05/19 15:10 100 02/05/19 15:05 100 02/05/19 15:00 100 02/05/19 14:55 100 02/05/19 14:54 100 07/15/19 14:50 02/05/19 14:45 02/05/19 14:40 02/05/19 14:35 02/05/19 14:30 100 02/05/19 14:25 92 02/05/19 14:20 96 02/05/19 14:15 97 02/05/19 14:10 98 02/05/19 14:05 92 02/05/19 14:00 97 02/05/19 13:55 99 02/05/19 13:50 100 02/05/19 13:45 100 02/05/19 13:40 100 02/05/19 13:35 02/05/19 13:30 02/05/19 13:26 100 02/05/19 13:25 100 02/05/19 13:21 164/79 H 02/05/19 08:39 93 PG Care Time/CCT Total # of Minutes Spent Total Time Spent with Patient: Total time spent is greater than 50% in coordination of care (as documented) at patient's floor/unit and/or counseling patient: (1) Breast cancer Breast location: unspecified site of breast Estrogen receptor status: unspecified Patient sex: female Laterality: left Qualified Code(s): C50.912 - Malignant neoplasm of unspecified site of left female breast
--- NOTE | 2019-02-05 23:00 | Operative Report ---
DATE OF OPERATION: 02/05/2019 NAME OF OPERATION: Bilateral mastectomy with sentinel lymph node biopsy on the left. 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 STAFF SURGEON: Sampson Armijo MD SOCCER PLAYER: Alejandro Denny PA-C ANESTHESIA: General. DESCRIPTION OF PROCEDURE: The patient was brought in the operating room and placed on the operating room table in supine position. Her arms were extended on an arm board. Her chest and axilla were prepped and draped bilaterally. My staff assistant helped with prepping, draping, mastectomy and closure of the wounds. Initially, we made an incision in the left axilla using 0.5% plain Marcaine, carrying dissection down identifying 3 lymph nodes, one of them was a sentinel node. It was sent for frozen section. The other ones were sent permanent. Frozen section was negative. During this, the right mastectomy was performed incising the breast from medial to lateral in elliptical fashion around the nipple areolar complex and then dissecting the breast tissue away from the subcutaneous tissue constructing superior and inferior breast flaps down to the pectoralis major muscle and dissecting the breast and fascia off of pectoralis major muscle. A dressing was placed into this area and then the left breast was approached. Same incision performed. There was a little bit less breast tissue and there was some scar tissue from prior radiation treatment. The breast tissue was dissected away from the subcutaneous tissue and the pectoralis major muscle in a similar fashion constructing superior and inferior breast flaps. At this point, a #15 round Roc-Vicente drains were placed into both wounds, secured to skin using 3-0 nylon suture. The subcutaneous tissue was reapproximated using 3-0 Vicryl suture. The skin in the left axilla was closed using 4-0 nylon suture. The breast incision was closed using subcuticular 4-0 Monocryl with Steri-Strips. The patient was transferred to recovery room in a stable condition. I attest to the content of the Intraoperative Record and any orders documented therein. Any exception s are noted below.
[2019-02-06] MEDS: CEFAZOLIN 1000MG 1,000 MG/7.5 ML SYR IV SCH ×3 (01:16→19:44)
--- NOTE | 2019-02-06 06:17 | Progress Note ---
Date of Service February 06, 2019 Assessment & Plan (1) S/P mastectomy, bilateral: pt w/ min pain, min drainage up to BR for first this am- unsteady dressings dry, intact- chg this am admit for 1-2 days - supportive care wound care- visiting nurse Results & Data Vital Signs (Past 12 Hours) Vital Signs Temp Pulse Pulse Resp BP BP Pulse Ox 02/06/19 03:14 36.8 C 70 16 130/63 98 02/06/19 00:06 36.3 C L 72 15 113/56 L 92 02/05/19 18:24 36.3 C L 62 16 168/68 H 97
[2019-02-06 07:11] LABS: Hematocrit (blood only) 37.6 % (37-47); Hemoglobin 12.4 g/dL (12.0-16.0); Mean Platelet Volume 11.7 fL (7.4-10.4); Platelet Count 243 K/uL (130-400); RDW Coefficient of Variation 13.7 % (11.5-14.5); RDW Standard Deviation 45.3 fL (36.4-46.3); Red Blood Count 4.18 M/uL (4.2-5.4); White Blood Count 14.73 K/uL (4.8-10.8)
[2019-02-06 07:24] LABS: Partial Thromboplastin Ratio 0.9; Partial Thromboplastin Time 23.9 Seconds (21.0-31.0); Prothrombin Time 10.2 Seconds (9.0-12.0)
[2019-02-06] MEDS: HEPARIN SOD 5,000 UNIT/0.5 ML VIAL SQ SCH ×2 (09:24→20:35)
[2019-02-06] MEDS: ATORVASTATIN 40 MG TAB PO SCH (16:41)
[2019-02-06] MEDS ORDERED: COUGH DROP (SUGAR FREE) LOZ 24 LOZ/1 BOX BUCCAL ONE (21:06)
--- NOTE | 2019-02-06 23:07 | Hospitalist Progress Note ---
Date of Service February 06, 2019 Assessment & Plan (1) Breast cancer: POD #1 - s/p b/l mastectomy with left-sided sentinel lymph node biopsy by Dr Armijo. defer post-op management to Dr Armijo. He plans to keep at least 1 more day. Agree w/ d/c of IV fluids. (2) Mixed hyperlipidemia: Cont lipitor at home dosing. (3) Neuralgia: right forehead, due to prior shingles episode in 2017. She would benefit from lyrica or gabapentin. I discussed use of gabapentin with her - not terribly interested; she can f/u with PCP for this. (4) DVT prophylaxis: defer to Dr Armijo Thank you for this consult. Patient medically stable with stable labs, vitals, etc. Will sign off for now. Please re-consult if necessary. Subjective was weak this am when she first got out of bed. however, weakness has improved through the day. +Flatus. no dyspnea. mild chest discomfort at operative sites. tolerating diet. no vertigo. Review of Systems Constitutional: no fever and no chills Respiratory: no cough and no dyspnea Cardiovascular: no chest pain Gastrointestinal: no abdominal pain Physical Exam Constitutional: + thin; no acute distress and no altered mental status ENMT: external ear and nose normal, oropharynx normal Respiratory: normal respiratory effort, lungs clear to auscultation Cardiovascular: Rate/Rhythm: regular rate and regular rhythm Heart Sounds: normal S1 and normal S2; no murmur Vessels: posterior tibial pulses present and dorsalis pedis pulses present; no JVD Extremities: no edema Chest (Breasts): Additional Comments: large JENY wrap in place covering entire chest wall; [address] Gastrointestinal (Abdomen): normal bowel sounds, soft, nontender, no hepatosplenomegaly Psychiatric: A+Ox3, euthymic affect Results & Data Vital Signs (Past 12 Hours) Vital Signs Temp Pulse Resp BP Pulse Ox 02/06/19 19:07 37 C 79 16 139/74 93 02/06/19 14:57 36.6 C 68 20 126/78 98 Laboratory Results Laboratory Results - last 24 hr 02/06/19 02/06/19 06:58 06:58 WBC 14.73 H RBC 4.18 L Hgb 12.4 Hct 37.6 MCV 90.0 MCH 29.7 MCHC 33.0 RDW Std Deviation 45.3 RDW Coeff of Endy 13.7 Plt Count 243 MPV 11.7 H PT 10.2 INR 1.0 APTT 23.9 PTT Ratio 0.9 PG Care Time/CCT Total # of Minutes Spent Total Time Spent with Patient: Total time spent is greater than 50% in coordination of care (as documented) at patient's floor/unit and/or counseling patient: (1) Breast cancer Breast location: unspecified site of breast Estrogen receptor status: unspecified Laterality: left Patient sex: female Qualified Code(s): C50.912 - Malignant neoplasm of unspecified site of left female breast
[2019-02-07] MEDS: CEFAZOLIN 1000MG 1,000 MG/7.5 ML SYR IV SCH ×2 (02:41→02:50)
[2019-02-07] MEDS: HEPARIN SOD 5,000 UNIT/0.5 ML VIAL SQ SCH (08:20)
[2019-02-07] MEDS ORDERED: cephALEXin 250 MG CAP PO SCH (09:00)
--- NOTE | 2019-02-07 11:53 | Discharge Summary ---
PRINCIPAL DIAGNOSIS: Left breast cancer. PROCEDURES: The patient underwent bilateral mastectomy with left sentinel lymph node biopsy. HISTORY OF PRESENT ILLNESS: The patient is a 73-year-old female with biopsy-proven recurrent left breast cancer which is actually ductal carcinoma in situ. She was brought into the hospital on 02/05/2019 where she underwent bilateral mastectomy with left sentinel lymph node biopsy. [place] lymph node was negative. She did very well and has progressed well and is felt stable for discharge home today to be followed in the surgical clinic next week. She does have drains in place.
== END 2019-02-07 11:50 | disposition home health service (06) | DRG 581 ==
LOC: ASU 07:30 → 3W 07:30

== ENCOUNTER 2020-03-08 14:03 | Observation (INO) ==
[2020-03-08] MEDS ORDERED: SODIUM CHLORIDE 0.9% 1000ML 1,000 ML IV ONE (14:09)
[2020-03-08] MEDS ORDERED: ONDANSETRON INJ 2 MG/ML 2 ML VIAL IV STA (14:09)
[2020-03-08] MEDS ORDERED: MoRPHine SULFATE 4 MG/ML 1 ML CARP\\VIAL IV STA (14:09)
--- NOTE | 2020-03-08 14:15 | Emergency Department Note ---
Impression & Plan Sepsis, MAILE (acute kidney injury), Hypothermia, Cystitis ED Provider Note NAME: ARABELLA HARPER AGE: 74 SEX: F : 1945 ARRIVES VIA: Ambulance INFORMANT: Patient, ED PROVIDER(S): Jonas Castaneda MD Chief Complaint: Syncope, back pain HPI: Patient does presents after syncopal event while talking to a neighbor ap proximately 1-1/2 hours prior. Patient does have some associated right-sided back discomfort. The patient has had associated nausea as well as some abdominal pain. Patient describes the back pain as sharp and nonradiating. She denies any recent trauma but did have a fall with the syncope. Patient reportedly did not strike her head does not take blood thinning medications. The patient did receive some Zofran in route and did have one episode of emesis nonbloody nonbilious. Patient states that her symptoms have stayed the same without anything making them any better or worse. Patient denies chest pains, shortness of breath, fevers or chills. ROS: See HPI for pertinent positives and negatives. A total of 10 systems were reviewed and otherwise negative. Past medical history: See below Surgical history: See below Social history: See below Physical Exam: GENERAL: Mildly ill in appearance, wearing glasses, hirsute. EYE EXAM: Normal conjunctiva. PERRL, no anisocoria and EOM's grossly intact w/o pain. NECK: Supple, no nuchal rigidity, no adenopathy, non-tender. No signs of menin gismus. No midline C-spine TTP. Chest: Bilateral well-healed mastectomy scars. LUNGS: Clear to auscultation. Normal chest wall mechanics. HEART: NSR, no MRG. ABDOMEN: Abdomen soft, non-tender, normo-active bowel sounds, no masses, no rebound or guarding. BACK: Right-sided TTP present. No midline thoracic or lumbar TTP. SKIN: No rashes and no bruising. UPPER EXTREMITIES: Upper extremities are grossly normal. LOWER EXTREMITIES: Grossly normal, no edema. NEURO EXAM: A&O x3, cranial nerves II-XII grossly intact, normal speech, moves all 4 extremities on command w/o issue. Differential diagnoses: Appendicitis, ovarian cyst, ovarian torsion, ectopic , TOA, PID, infections, diverticulitis, UTI, obstruction, mesenteric ischemia, aortic pathology, inflammatory bowel disease, renal colic, PUD, pancreatitis, biliary pathology, hernia, volvulus, constipation, as well as other pathologies. Vasovagal event, dehydration, infection, hypoglycemia, electrolyte abnormalities, cardiac sources, intracerebral event, pulmonary embolism, seizure, toxicologic, neurologic, as well as other pathologies. Course: Patient was seen and evaluated the bedside. Full history physical exam was perf ormed. EKG: Indication: Syncope Normal sinus rhythm, rate of 66, normal intervals, normal axis, T wave inversion in aVL slight depression V3 and V4. No obvious changes from comparison EKG January 30, 2019. Repeat posterior EKG Normal sinus rhythm, rate of 70, normal intervals, normal axis, no obvious elevations in the lateral V4 through V6 which were posteriorly placed. Imaging Studies: Radiology results as stated below per my review in the radiologist's interpretation: CT head/brain wo con CLINICAL HISTORY: syncope COMPARISON STUDY: 09/18/2012 TECHNIQUE: Axial CT of the brain is performed from the vertex to the skull base. IV contrast was not administered for this examination. A dose lowering technique was utilized adhering to the principles of ALARA. CT DOSE: FINDINGS: No intra or extra-axial mass lesions are visualized. There is no CT evidence of acute cortical infarction. There is no evidence of midline shift. There is no acute hemorrhage. No calvarial fractures are visualized. There are patchy white matter hypodensities likely on a small vessel basis. There is an deep white matter infarct adjacent to the anterior aspect of the right lateral ventricle. Although not present 2012, this does not appear acute. There is no evidence of pathologic ventricular dilatation. There is no evidence of acute sinusitis IMPRESSION: No acute intracranial findings ACT 112: Negative or not required by law. Electronically signed by: Matthew Whitt M.D. 03/08/2020 2:53 PM Dictated: 03/08/20 1451 Transcribed: 03/08/[address] SCAN OF THE ABDOMEN AND PELVIS WITHOUT CONTRAST CLINICAL HISTORY: Abdominal pain. Syncope. COMPARISON STUDY: No previous studies for comparison. TECHNIQUE: CT scan of the abdomen and pelvis was performed from the lung bases to the proximal femurs. Images are reviewed in the axial, sagittal, and coronal planes. IV contrast was not administered for this examination. A dose lowering technique was utilized adhering to the principles of ALARA. CT DOSE: 1157.73 mGy.cm FINDINGS: Lower chest: There is bilateral bronchial wall thickening and mucous plugging with scattered tiny nodules. The findings are felt to be on an infectious/i nflammatory basis. There is a tiny hiatal hernia Liver: The unenhanced liver is normal in size, contour, and attenuation. There is no intrahepatic biliary ductal dilatation. Gallbladder: Unremarkable. Spleen: Normal in size and attenuation. Pancreas: Unremarkable. Adrenal glands: Unremarkable. Kidneys: No renal, ureteral, or bladder calculi are visualized. Bowel: There are no transition zones indicate bowel obstruction. The appendix appears normal. There is no acute diverticulitis. There is mild fecal retention. Peritoneum: There is no intraperitoneal free air or abdominal ascites. Vasculature: There are moderate atheromatous calcifications present. There is no evidence of abdominal aortic aneurysm Adenopathy: None. Pelvic viscera: The uterus is surgically absent. There is an pessary present. There is a soft tissue nodule in the right perirectal region. Although nonspecific this could represent the patient's right ovary. Skeletal structures: No destructive osseous lesions are seen. IMPRESSION: 1. No evidence of bowel obstruction. No evidence of free air 2. No renal, ureteral, or bladder calculi identified 3. No evidence of acute diverticulitis. No evidence of acute appendicitis. ACT 112: Negative or not required by law. Electronically signed by: Matthew Whitt M.D. 03/08/2020 2:59 PM Dictated: 03/08/20 1454 Transcribed: 03/08/20 1454 XR chest 1V portable CLINICAL HISTORY: syncope COMPARISON STUDY: 06/30/2015 FINDINGS: The cardiac and mediastinal contours are normal. There is no evidence of focal pulmonary consolidation. There is no evidence of failure. No pleural effusions are visualized.[There is mild basilar interstitial thickening, slight ly progressive. There is an old right-sided rib fracture.. IMPRESSION: Slightly progressive basilar interstitial thickening. No evidence of lobar consolidation. ACT 112: Negative or not required by law. Electronically signed by: Matthew Whitt M.D. 03/08/2020 2:50 PM Dictated: 03/08/20 1449 Transcribed: 03/08/20 1449 Cardiac monitoring: An order was placed for continuous cardiac monitoring. The monitor shows a rate of 75 with sinus rhythm. MDM: Patient was seen due to concern for syncope and back pain. Blood work is obtained along with CT abdomen pelvis, chest x-ray, EKG. Patient was ordered IV fluids and antiemetics. Patient's [id number] BMP shows mild hypokalemia and associated mild kidney dysfunction with a creatinine 1.8 from prior being 1.1. I was informed that the patient was hypothermic so bear hugger was applied, blood cultures and a lactic acid were obtained. The patient did have a mild white count of 17 with a left shift so empiric antibiotics were ordered. Urinalysis was pending. Chest x-ray does not show any evidence of obvious infection. The patient has denied any infectious symptoms. A posterior EKG was obtained she might of had some very slight depression V3 and V4. There is no evidence of elevation on posterior EKG. Troponin is undetectable. CT of the abdomen pelvis did not show any evidence of acute findings. CT head also negative. I did speak the on-call hospitalist Dr. Hoyos. Patient was subsequently admitted to medicine service. Patient's urinalysis did show white casts bacteria and white cells without leukocytes or nitrites. Past Med/Surg History Medical History (Updated 03/08/20 @ 16:08 by Jonas Castaneda MD) Arthritis BREAST - CURRENT ISSUE Cancer THIS IS SECOND BOUT OF CANCER History of uterine fibroid Hx of vertigo Hypercholesterolemia Open fracture of nasal bone Osteoporosis Presence of pessary Vitamin D deficiency Surgical History History of anesthesia reaction DESCRIBES THAT SHE WAS TOLD HAD AGITATION WHEN SHE WAS SEDATED FOR HAND SURGERY AT [facility] - 2018 History of carpal tunnel release RIGHT History of lumpectomy of left breast Hx of eye surgery REMOVAL OF CYST Hx of hand surgery LEFT Hx of hysterectomy, total Hx of tonsillectomy Hx of vaginal surgery TO DILATE CERVIX Hx of wisdom tooth extraction S/P carpal tunnel release S/P mastectomy, bilateral (02/05/19) Bilateral mastectomy with sentinel lymph node biopsy on the left 02/05/19 Dr. Armijo Family History Mother Family history of diabetes mellitus Diabetes GERD (gastroesophageal reflux disease) Hypertension Valvular heart disease Stroke Family/Other Family history of diabetes mellitus Father Stroke Denies family history of Colorectal cancer Social History Smoking Status: Never smoker Second Hand Exposure: Yes ( CHILD, AT WORK AND HOME); Hx Alcohol Use: No Hx Substance Use: No Preferred Language: Tanzanian Communication Ability: Effective Beliefs That Will Affect Care: None marital status: Current Living Situation: Spouse current occupational status: retired Feels Safe at Home: Yes Allergies Allergies Allergy/AdvReac Type Severity Reaction Status Date / Time bee venom protein (honey bee) Allergy Unknown LOCALIZED Verified 03/08/20 14:40 SWELLING Penicillins Allergy Unknown CHILD Verified 03/08/20 14:44 tetracycline Allergy Unknown Hives Verified 03/08/20 14:40 egg Allergy ? Verified 03/08/20 14:44 erythromycin base AdvReac Unknown HALLUCINATE Verified 03/08/20 14:40 chocolate flavor AdvReac ? Verified 03/08/20 14:44 Home Meds Home Medications Medication Instructions Recorded Confirmed acetaminophen 500 mg PO Q6H PRN 01/29/19 03/08/20 atorvastatin 40 mg PO QDD 01/29/19 03/08/20 cholecalciferol (vitamin D3) 125 mcg PO QDD 03/08/20 03/08/20 Results & Data (ED) Vital Signs Vital Signs - 24 hr 03/08/20 14:10 03/08/20 14:14 03/08/20 14:16 Temperature 34.9 C L Temperature Source Rectal Pulse Rate 71 65 62 Pulse Rate from SpO2 Sensor 65 63 Respiratory Rate 18 12 17 Respiratory Effort / Characteristics Non-Labored Spontaneous Respiratory Depth Normal Respiratory Pattern Regular Blood Pressure 170/74 H 177/73 H Blood Pressure Mean 106 123 Pulse Oximetry 95 96 96 Oxygen Delivery Method Room Air Room Air Room Air Sepsis Recent Fever Within 48 Hours No Sepsis New/Unexplained Change in Mental Status No Sepsis Action Taken by Nursing No Action Required 03/08/20 14:20 03/08/20 14:30 03/08/20 14:31 Temperature Temperature Source Pulse Rate 67 63 72 Pulse Rate from SpO2 Sensor 66 63 70 Respiratory Rate 16 10 L 14 Respiratory Effort / Characteristics Respiratory Depth Respiratory Pattern Blood Pressure 167/62 H Blood Pressure Mean 90 Pulse Oximetry 90 96 90 Oxygen Delivery Method Room Air Room Air Room Air Sepsis Recent Fever Within 48 Hours Sepsis New/Unexplained Change in Mental Status Sepsis Action Taken by Nursing 03/08/20 14:48 03/08/20 14:50 03/08/20 15:00 Temperature Temperature Source Pulse Rate 73 69 70 Pulse Rate from SpO2 Sensor 72 70 69 Respiratory Rate 10 L 12 9 L Respiratory Effort / Characteristics Respiratory Depth Respiratory Pattern Blood Pressure Blood Pressure Mean Pulse Oximetry 94 97 90 Oxygen Delivery Method Room Air Room Air Room Air Sepsis Recent Fever Within 48 Hours Sepsis New/Unexplained Change in Mental Status Sepsis Action Taken by Nursing 03/08/20 15:10 Temperature Temperature Source Pulse Rate 64 Pulse Rate from SpO2 Sensor 65 Respiratory Rate Respiratory Effort / Characteristics Respiratory Depth Respiratory Pattern Blood Pressure Blood Pressure Mean Pulse Oximetry 91 Oxygen Delivery Method Room Air Sepsis Recent Fever Within 48 Hours Sepsis New/Unexplained Change in Mental Status Sepsis Action Taken by [facility] Medications Current Medication List: was personally reviewed by me Laboratory Data Attestation: I reviewed the patient's lab results. Result diagrams: 03/08/20 13:33 03/08/20 13:33 Lab Results 03/08/20 03/08/20 03/08/20 Range/Units 13:33 13:33 13:33 WBC 17.36 H (4.8-10.8) K/uL RBC 4.72 (4.2-5.4) M/uL Hgb 14.4 (12.0-16.0) g/dL POC Hgb (12.0-16.0) g/dl Hct 41.9 (37-47) % POC Hct (37-47) % MCV 88.8 (80-100) fL MCH 30.5 (25-34) pg MCHC 34.4 (32-36) g/dL RDW Std Deviation 42.6 (36.4-46.3) fL RDW Coeff of Endy 13.1 (11.5-14.5) % Plt Count 337 (130-400) K/uL MPV 11.8 H (7.4-10.4) fL Immature Gran % (Auto) 1.4 % Neut % (Auto) 52.1 % Lymph % (Auto) 35.8 % [place] % (Auto) 9.2 % Eos % (Auto) 1.3 % Baso % (Auto) 0.2 % Neut # (Auto) 9.05 H (1.4-6.5) K/uL Lymph # (Auto) 6.22 H (1.2-3.4) K/uL [place] # (Auto) 1.59 H (0.11-0.59) K/uL Eos # (Auto) 0.22 (0-0.5) K/uL Baso # (Auto) 0.04 (0-0.2) K/uL Immature Gran # (Auto) 0.24 H (0.00-0.02) K/uL Echinocytes 1+ POC Sodium (135-144) mmol/L Sodium 141 (136-145) mmol/L POC Potassium (3.3-5.0) mmol/L Potassium 2.7 L (3.5-5.1) mmol/L POC Chloride (101-112) mmol/L Chloride 110 H (98-107) mmol/L Carbon Dioxide 25 (21-32) mmol/L POC Total CO2 (24-31) mmol/L Anion Gap 6.0 (3-11) POC Anion Gap (16-25) mmol/L POC BUN (7-18) mg/dl BUN 29 H (7-18) mg/dl Creatinine 1.83 H (0.6-1.2) mg/dl POC Creatinine (0.6-1.3) mg/dl Est Cr Clr Drug Dosing 21.0 ml/min Est GFR ( Amer) 31.4 Est GFR (Non-Af Amer) 27.1 BUN/Creatinine Ratio 16.0 (10-20) Glucose 126 H (70-99) mg/dl POC Glucose (other) (70-99) mg/dl Lactate (0.4-2.0) mmol/L Calcium 9.3 (8.5-10.1) mg/dl POC Ioniz Calcium Jaycee (1.12-1.32) mmol/l Magnesium 2.3 (1.8-2.4) mg/dl Total Bilirubin 0.6 (0.2-1) mg/dl AST 21 (15-37) U/L ALT 28 (12-78) U/L Alkaline Phosphatase 81 (45-117) U/L Troponin I < 0.015 (0-0.045) ng/ml Total Protein 7.3 (6.4-8.2) gm/dl Albumin 3.9 (3.4-5.0) gm/dl Globulin 3.4 (2.5-4.0) gm/dl Albumin/Globulin Ratio 1.2 (0.9-2) Lipase 216 (73-393) U/L Procalcitonin < 0.05 (0-0.5) ng/ml Urine Color Urine Appearance (Clear) Urine pH (4.5-7.5) Ur Specific [place] (1.000-1.030) Urine Protein (Negative) Urine Glucose (UA) (Negative) Urine Ketones (Negative) Urine Blood (Negative) Urine Nitrite (Negative) Urine Bilirubin (Negative) Urine Urobilinogen (Negative) Ur Leukocyte Esterase (Negative) Urine RBC (0-4) /hpf Urine WBC (0-5) /hpf Ur Epithelial Cells (0-5) /lpf Other Crystals (None Prsent) Urine Bacteria (Negative) Hyaline Casts (0-5) /lpf WBC Casts (0) /lpf 03/08/20 03/08/20 03/08/20 Range/Units 14:16 14:57 15:35 WBC (4.8-10.8) K/uL RBC (4.2-5.4) M/uL Hgb (12.0-16.0) g/dL POC Hgb 14.6 (12.0-16.0) g/dl Hct (37-47) % POC Hct 43 (37-47) % MCV (80-100) fL MCH (25-34) pg MCHC (32-36) g/dL RDW Std Deviation (36.4-46.3) fL RDW Coeff of Endy (11.5-14.5) % Plt Count (130-400) K/uL MPV (7.4-10.4) fL Immature Gran % (Auto) % Neut % (Auto) % Lymph % (Auto) % [place] % (Auto) % Eos % (Auto) % Baso % (Auto) % Neut # (Auto) (1.4-6.5) K/uL Lymph # (Auto) (1.2-3.4) K/uL [place] # (Auto) (0.11-0.59) K/uL Eos # (Auto) (0-0.5) K/uL Baso # (Auto) (0-0.2) K/uL Immature Gran # (Auto) (0.00-0.02) K/uL Echinocytes POC Sodium 143 (135-144) mmol/L Sodium (136-145) mmol/L POC Potassium 2.7 L (3.3-5.0) mmol/L Potassium (3.5-5.1) mmol/L POC Chloride 107 (101-112) mmol/L Chloride (98-107) mmol/L Carbon Dioxide (21-32) mmol/L POC Total CO2 22 L (24-31) mmol/L Anion Gap (3-11) POC Anion Gap 18.0 (16-25) mmol/L POC BUN 29 H (7-18) mg/dl BUN (7-18) mg/dl Creatinine (0.6-1.2) mg/dl POC Creatinine 1.8 H (0.6-1.3) mg/dl Est Cr Clr Drug Dosing ml/min Est GFR ( Amer) Est GFR (Non-Af Amer) BUN/Creatinine Ratio (10-20) Glucose (70-99) mg/dl POC Glucose (other) 131 H (70-99) mg/dl Lactate 1.9 (0.4-2.0) mmol/L Calcium (8.5-10.1) mg/dl POC Ioniz Calcium Jaycee 1.19 (1.12-1.32) mmol/l Magnesium (1.8-2.4) mg/dl Total Bilirubin (0.2-1) mg/dl AST (15-37) U/L ALT (12-78) U/L Alkaline Phosphatase (45-117) U/L Troponin I (0-0.045) ng/ml Total Protein (6.4-8.2) gm/dl Albumin (3.4-5.0) gm/dl Globulin (2.5-4.0) gm/dl Albumin/Globulin Ratio (0.9-2) Lipase (73-393) U/L Procalcitonin (0-0.5) ng/ml Urine Color Yellow Urine Appearance Clear (Clear) Urine pH 6.5 (4.5-7.5) Ur Specific [place] 1.020 (1.000-1.030) Urine Protein 1+ H (Negative) Urine Glucose (UA) Negative (Negative) Urine Ketones Negative (Negative) Urine Blood 1+ H (Negative) Urine Nitrite Negative (Negative) Urine Bilirubin Negative (Negative) Urine Urobilinogen Negative (Negative) Ur Leukocyte Esterase Negative (Negative) Urine RBC 0-4 (0-4) /hpf Urine WBC 5-10 H (0-5) /hpf Ur Epithelial Cells 0-5 (0-5) /lpf Other Crystals Hippuric Acid A (None Prsent) Urine Bacteria 2+ H (Negative) Hyaline Casts 0-5 (0-5) /lpf WBC Casts 1-5 H (0) /lpf Administered Medications Vancomycin HCl 1,500 mg/ (Sodium Chloride) 530 mls @ 200 mls/hr IV NOW ONE Stop: 03/08/20 17:18 Last Admin: 03/08/20 15:14 Dose: 200 mls/hr Documented by: [id number] Miscellaneous Information (Vancomycin Consult Active) 1 ea N/A UD PRN PRN Reason: Consult Stop: 04/07/20 14:39 Last Admin: 03/08/20 15:41 Dose: 1 ea Documented by: [id number] Discontinued Medications Sodium Chloride (Nss 1000ml) 1,000 mls @ 999 mls/hr IV .Q1H1M ONE Stop: 03/08/20 15:09 Last Infusion: 03/08/20 15:40 Dose: 0 mls/hr Documented by: [id number] Admin: 03/08/20 14:17 Dose: 999 mls/hr Documented by: [id number] Cefepime HCl (Maxipime) 2,000 mg in 20 mls @ 5 mls/min IV NOW STA; Protocol Stop: 03/08/20 14:48 Last Admin: 03/08/20 15:14 Dose: 5 mls/min Documented by: [id number] Morphine Sulfate (Morphine Sulfate 4 Mg/Ml 1 Ml Carp\Vial) 4 mg IV NOW STA Stop: 03/08/20 14:10 Last Admin: 03/08/20 15:02 Dose: 4 mg Documented by: [id number] Ondansetron HCl (Ondansetron Inj 2 Mg/Ml 2 Ml Vial) 4 mg IV NOW STA Stop: 03/08/20 14:10 Last Admin: 03/08/20 15:00 Dose: 4 mg Documented by: [id number] Discharge Plan Visit Data Chief Complaint: Illness Stated Complaint: Syncope ED Provider: Jonas Castaneda Discharge Problem: Sepsis, MAILE (acute kidney injury), Hypothermia, Cystitis Forms Stand Alone Forms: [employer] Prescriptions Prescriptions: No Action atorvastatin 40 mg Tablet 40 mg PO QDD RF: 0 acetaminophen 500 mg Tablet 500 mg PO Q6H PRN (Reason: Pain) RF: 0 cholecalciferol (vitamin D3) 125 mcg (5,000 unit) capsule 125 mcg PO QDD RF: 0 Discharge Problem: Sepsis Qualifiers: Sepsis type: sepsis due to unspecified organism Sepsis acute organ dysfunction status: with acute organ dysfunction Severe sepsis acute organ dysfunction type: acute renal failure Acute renal failure type: unspecified Severe sepsis shock status: without septic shock Qualified Code(s): A41.9 - Sepsis, unspecified organism Hypothermia Qualifiers: Encounter type: initial encounter Qualified Code(s): T68.XXXA - Hypothermia, initial encounter
[2020-03-08 14:28] LABS: iSTAT Creatinine 1.8 mg/dl (0.6-1.3); iSTAT Hemoglobin 14.6 g/dl (12.0-16.0); iSTAT Ionized Calcium 1.19 mmol/l (1.12-1.32); iSTAT Potassium 2.7 mmol/L (3.3-5.0)
[2020-03-08 14:33] LABS: Hematocrit (blood only) 41.9 % (37-47); Hemoglobin 14.4 g/dL (12.0-16.0); Mean Corpuscular Hemoglobin 30.5 pg (25-34); Mean Corpuscular Hgb Conc 34.4 g/dL (32-36); Mean Corpuscular Volume 88.8 fL (80-100); Mean Platelet Volume 11.8 fL (7.4-10.4); Platelet Count 337 K/uL (130-400); RDW Coefficient of Variation 13.1 % (11.5-14.5); RDW Standard Deviation 42.6 fL (36.4-46.3); Red Blood Count 4.72 M/uL (4.2-5.4); White Blood Count 17.36 K/uL (4.8-10.8)
[2020-03-08] MEDS ORDERED: VANCOMYCIN CONSULT ACTIVE PRN (14:40)
[2020-03-08] MEDS ORDERED: VANCOMYCIN HCL 1,500 MG in SODIUM CHLORIDE 0.9% 500 ML IV ONE (14:40)
[2020-03-08] MEDS ORDERED: CEFEPIME 2,000 MG/20 ML VIAL IV STA (14:45)
--- NOTE | 2020-03-08 14:51 | XRay Report ---
XR chest 1V portable CLINICAL HISTORY: syncope COMPARISON STUDY: 06/30/2015 FINDINGS: The cardiac and mediastinal contours are normal. There is no evidence of focal pulmonary co nsolidation. There is no evidence of failure. No pleural effusions are visualized.[There is mild basi lar interstitial thickening, slightly progressive. There is an old right-sided rib fracture.. IMPRESSION: Slightly progressive basilar interstitial thickening. No evidence of lobar consolidation. ACT 112: Negative or not required by law. Electronically signed by: Matthew Whitt M.D. 03/08/2020 2:50 PM
[2020-03-08 14:52] LABS: Alanine Aminotransferase 28 U/L (12-78); Albumin Level 3.9 gm/dl (3.4-5.0); Aspartate Aminotransferase 21 U/L (15-37); Blood Urea Nitrogen 29 mg/dl (7-18); Calcium 9.3 mg/dl (8.5-10.1); Carbon Dioxide 25 mmol/L (21-32); Chloride 110 mmol/L (98-107); Est GFR (African American) 31.4; Est GFR (Non-African American) 27.1; Glucose 126 mg/dl (70-99); Lipase 216 U/L (73-393); Magnesium 2.3 mg/dl (1.8-2.4); Potassium 2.7 mmol/L (3.5-5.1); Sodium 141 mmol/L (136-145)
--- NOTE | 2020-03-08 14:55 | CT Scan Report ---
CT head/brain wo con CLINICAL HISTORY: syncope COMPARISON STUDY: 09/18/2012 TECHNIQUE: Axial CT of the brain is performed from the vertex to the skull base. IV contrast was not administered for this examination. A dose lowering technique was utilized adhering to the principles of ALARA. CT DOSE: FINDINGS: No intra or extra-axial mass lesions are visualized. There is no CT evidence of acute cortical infarc tion. There is no evidence of midline shift. There is no acute hemorrhage. No calvarial fractures ar e visualized. There are patchy white matter hypodensities likely on a small vessel basis. There is an deep white ma tter infarct adjacent to the anterior aspect of the right lateral ventricle. Although not present 201 3, this does not appear acute. There is no evidence of pathologic ventricular dilatation. There is no evidence of acute sinusitis IMPRESSION: No acute intracranial findings ACT 112: Negative or not required by law. Electronically signed by: Matthew Whitt M.D. 03/08/2020 2:53 PM
[2020-03-08 14:57] LABS: Albumin Globulin Ratio 1.2 (0.9-2); Alkaline Phosphatase 81 U/L (45-117); Bilirubin,Total 0.6 mg/dl (0.2-1); Globulin 3.4 gm/dl (2.5-4.0); Total Protein 7.3 gm/dl (6.4-8.2); Troponin I < 0.015 ng/ml (0-0.045)
[2020-03-08 14:59] LABS: Basophils # (auto) 0.04 K/uL (0-0.2); Basophils % (auto) 0.2 %; Echinocytes 1+; Eosinophils # (auto) 0.22 K/uL (0-0.5); Eosinophils % (auto) 1.3 %; Immature Granulocytes # (auto) 0.24 K/uL (0.00-0.02); Immature Granulocytes % (auto) 1.4 %; Lymphocytes # (auto) 6.22 K/uL (1.2-3.4); Lymphocytes % (auto) 35.8 %; Monocytes # (auto) 1.59 K/uL (0.11-0.59); Monocytes % (auto) 9.2 %; Neutrophils # (auto) 9.05 K/uL (1.4-6.5); Neutrophils % (auto) 52.1 %
--- NOTE | 2020-03-08 15:00 | CT Scan Report ---
CT SCAN OF THE ABDOMEN AND PELVIS WITHOUT CONTRAST CLINICAL HISTORY: Abdominal pain. Syncope. COMPARISON STUDY: No previous studies for comparison. TECHNIQUE: CT scan of the abdomen and pelvis was performed from the lung bases to the proximal femurs . Images are reviewed in the axial, sagittal, and coronal planes. IV contrast was not administered fo r this examination. A dose lowering technique was utilized adhering to the principles of ALARA. CT DOSE: 1157.73 mGy.cm FINDINGS: Lower chest: There is bilateral bronchial wall thickening and mucous plugging with scattered tiny nod ules. The findings are felt to be on an infectious/inflammatory basis. There is a tiny hiatal hernia Liver: The unenhanced liver is normal in size, contour, and attenuation. There is no intrahepatic john iary ductal dilatation. Gallbladder: Unremarkable. Spleen: Normal in size and attenuation. Pancreas: Unremarkable. Adrenal glands: Unremarkable. Kidneys: No renal, ureteral, or bladder calculi are visualized. Bowel: There are no transition zones indicate bowel obstruction. The appendix appears normal. There i s no acute diverticulitis. There is mild fecal retention. Peritoneum: There is no intraperitoneal free air or abdominal ascites. Vasculature: There are moderate atheromatous calcifications present. There is no evidence of abdomina l aortic aneurysm Adenopathy: None. Pelvic viscera: The uterus is surgically absent. There is an pessary present. There is a soft tissue nodule in the right perirectal region. Although nonspecific this could represent the patient's right ovary. Skeletal structures: No destructive osseous lesions are seen. IMPRESSION: 1. No evidence of bowel obstruction. No evidence of free air 2. No renal, ureteral, or bladder calculi identified 3. No evidence of acute diverticulitis. No evidence of acute appendicitis. ACT 112: Negative or not required by law. Electronically signed by: Matthew Whitt M.D. 03/08/2020 2:59 PM
--- NOTE | 2020-03-08 15:35 | History & Physical Report ---
Date of Service March 08, 2020 Assessment & Plan (1) Sepsis: - Admit to tele - Continue bare hugger as needed for hypothermia - Started on vanc anc cefepime, will continue cefepime and switch to daptomycin with MAILE - Check COVID-19 stat for r/o - pt was tested in December and NEG at that time - CT of the abd/pelvis lower lung field shows bilateral bronchial wall thickening and mucous plugging with scattered tiny nodules. The findings are felt to be on an infectious/inflammatory basis. There is mild fecal retention, consistent with her c/o constipation on and off for the past month - CXR reviewed shows similar -->slightly progressive basilar interstitial thickening. No evidence of lobar consolidation - Pulmonary toilet - flutter, incentive spirometry, sputum culture/gram stain, mucinex, albuterol has - NPO with severe nausea - will order zosyn, compazine and phenergan for nausea - LA 1.9 on admission, continue fluids (2) Episode of syncope: - Witnessed, pt states she did not hit her head - CT negative - monitor for concussive sx with nausea if no abdominal source identified - Check 2D echo - Initial troponin neg, trend x 1 more set - EKG reviewed, anterolateral ST wave abnormality, will recheck EKG to r/o cardiac invovlement (3) Hypothermia: - Tmax of 34.9 - continue warming blanket (4) MAILE (acute kidney injury): - Cr elveated at 1.8, BUN 29, appears that baseline is around 0.9-1.0 - UA with granular casts, ? glomerulonephritis? possibly viral etiology - NSS at 125ml/hr - Consider nephrology consult (5) Chronic obstructive pulmonary disease, unspecified: - Pt reports following with a Dr. Lee in [place], but the last time was about 3 years ago. At that point she was previously on inhalers and medication, however has since stopped taking these meds. Pt suffers from chronic sinusitis and feels that she has been able to cope without medications. Her smokes chronically, not in the home, but she has second hand exposure. - Consider pulm consult if needed - Checking COVID as above (6) Breast cancer: - DCIS left breast ER +/MD not tested. Diagnosed origionally 01/16/19, previous ductal carcinoma in situ involving same breast patient states 25 years prior. - Bilateral mastectomy on 02/05/2019 (7) H/O bilateral mastectomy: - As above (8) Neuralgia: - Hx of shingles over the Left eye and forehead >1 year ago, chronic, currently has pain there. (9) Osteoporosis: - Cont supplemenatation (10) Vitamin D deficiency: - Cont supplementation (11) Hypokalemia: - 2.7 on admission, will replace with IV for now, follow repeat BMP 2000 and am labs (12) DVT prophylaxis: - teds, heparin subq CODE: Conditional code, agreeable to CPR, chest compressions, IV medication, defibrillation, bag mask. NO INTUBATION. Dispo: From home, likely to remain in the hospital x 2 days. History of Present Illness Primary Care Provider: RILEY Cardona This is a 74 yo F with PMHx of COPD, hx breast cancer s/p bilateral mastectomy, HLD, who presents with acute ill feeling. She reports not feeling like herself for the past 3 to 4 days, feeling sweaty intermittently, flushed, but thought that this was due to humidity. Today she proceeded to go on a walk with her neighbor for ~1/4 mile, which during this felt well. At the end of her walk while they were standing and talking, she acutely felt flushed and passed out, falling to the ground. Did not hit her head. She does not remember feeling lightheaded or dizzy prior to this and came to within a few minutes. Neighbor called EMS which brought her to the ER. Once here she continues to feel extremely nauseous, vomiting at bedside even after receiving several doses of antiemetics via EMS. She admits to feeling abdominal distention, no specific pain. Pt has been constipated, last BM 3 days ago, but has been an issue for 1 month. She is currently having back pain and thinks it is because she fell today. Denies any recent fever or chills. Denies any recent travel, known COVID-19 contacts. She was recently in the cancer center for routine checkup with Dr. Crawley 1 week ago for her history of breast cancer in remission since having a bilateral mastectomy last January. She also notes that she has dealt with lifelong sinusitis, and previously had followed with a Dr. De Leon in [place] who gave her prescriptions for inhalers, but has not seen this provider in over 3 years. She does not use any inhalers or take any pulmonary related medications. Her of 45+ years smokes, but not in the home. As far as oral intake today patient had a cup of tea and a diet Dr. Valle, no water. She ate and drink normally yesterday, denies consumption of any raw or undercooked foods. Their home is hooked up to public water. Pt took her medications last evening as prescribed. Her is present at bedside. Pt noted to be hypothermic with Tmax of 34.9 on admission requiring bear hugger, elevated WBC of 17.36, hypokalemia K+ = 2.7, and MAILE with BUN 29 and Cr. 1.8. Allergies Allergy/AdvReac Type Severity Reaction Status Date / Time bee venom protein (honey bee) Allergy Unknown LOCALIZED Verified 03/08/20 14:40 SWELLING Penicillins Allergy Unknown CHILD Verified 03/08/20 14:44 tetracycline Allergy Unknown Hives Verified 03/08/20 14:40 egg Allergy ? Verified 03/08/20 14:44 erythromycin base AdvReac Unknown HALLUCINATE Verified 03/08/20 14:40 chocolate flavor AdvReac ? Verified 03/08/20 14:44 Home Medications Home Medications Medication Instructions Recorded Confirmed Type acetaminophen 500 mg PO Q6H PRN 01/29/19 03/08/20 History atorvastatin 40 mg PO QDD 01/29/19 03/08/20 History cholecalciferol (vitamin D3) 125 mcg PO QDD 03/08/20 03/08/20 History Past Med/Surg History Medical History (Updated 03/08/20 @ 16:33 by Sherry Perez PA-C) Arthritis BREAST - CURRENT ISSUE Cancer THIS IS SECOND BOUT OF CANCER History of uterine fibroid Hx of vertigo Hypercholesterolemia Open fracture of nasal bone Osteoporosis Presence of pessary Vitamin D deficiency Surgical History History of anesthesia reaction DESCRIBES THAT SHE WAS TOLD HAD AGITATION WHEN SHE WAS SEDATED FOR HAND SURGERY AT [facility] - 2018 History of carpal tunnel release RIGHT History of lumpectomy of left breast Hx of eye surgery REMOVAL OF CYST Hx of hand surgery LEFT Hx of hysterectomy, total Hx of tonsillectomy Hx of vaginal surgery TO DILATE CERVIX Hx of wisdom tooth extraction S/P carpal tunnel release S/P mastectomy, bilateral (02/05/19) Bilateral mastectomy with sentinel lymph node biopsy on the left 02/05/19 Dr. Armijo Family History Mother Family history of diabetes mellitus Diabetes GERD (gastroesophageal reflux disease) Hypertension Valvular heart disease Stroke Family/Other Family history of diabetes mellitus Father Stroke Denies family history of Colorectal cancer Social History Smoking Status: Never smoker Second Hand Exposure: Yes ( CHILD, AT WORK AND HOME); Hx Alcohol Use: No Hx Substance Use: No Preferred Language: [place]rugu[place] Communication Ability: Effective Beliefs That Will Affect Care: None marital status: Current Living Situation: Spouse current occupational status: retired Other Information That Helps Us Care for You: No Feels Safe at Home: Yes Safety Concerns: Feels Safe At This Time Review of Systems Review of Systems: Constitutional: No fever, + sweats and chills, + syncopal episode Eyes: No diplopia, no worsening or blurred vision ENT: normal hearing, no trouble swallowing Respiratory: No cough, sputum, dyspnea at rest or on exertion Cardiovascular: No chest pain, tightness or palpitations Abdomen: +no pain, +nausea, +vomiting, + constipation, no diarrhea Musculoskeletal: No joint pain, calf pain, swelling Neurologic: No weakness, numbness/tingling, or balance problems Psychiatric: No anxiety or depression Skin: No rash or itch Physical Exam Physical Exam: General: awake, alert, moderate distress, nauseous, actively vomiting during exam Head: Normocephalic, atraumatic ENT: PERRL, EOMI, no pharyngeal exudate, mucous membranes moist Chest: on 2L via NC, RR initially 9 but improved to 13, diminished breath sounds throughout with faint rales bibasilarly Cardiac: Regular rate and rhythm, no murmur, no JVD, normal peripheral pulses, good capillary refill Abdominal: NABS x 4 quadrants, soft, + distended, nontender to palpation, no rebound, guarding or tenderness Extremities: Normal inspection, no peripheral edema or erythema, calfs nontender to palpation Psych: Normal mood and affect Neuro: AAO x 3, strength intact bilaterally and rated 5/5, no gross motor deficits, speech is clear, no peripheral sensory deficits Results & Data Results & Data ([facility]) Vital Signs (Past 12 Hours) Vital Signs Temp Pulse Resp BP Pulse Ox 03/08/20 15:10 64 91 03/08/20 15:00 70 9 L 90 03/08/20 14:50 69 12 97 03/08/20 14:48 73 10 L 94 03/08/20 14:31 72 14 90 03/08/20 14:30 63 10 L 167/62 H 96 03/08/20 14:20 67 16 90 03/08/20 14:16 62 17 96 03/08/20 14:14 65 12 177/73 H 96 03/08/20 14:10 34.9 C L 71 18 170/74 H 95 Diagnostic Findings XR chest 1V portable CLINICAL HISTORY: syncope COMPARISON STUDY: 06/30/2015 FINDINGS: The cardiac and mediastinal contours are normal. There is no evidence of focal pulmonary consolidation. There is no evidence of failure. No pleural effusions are visualized.[There is mild basilar interstitial thickening, slightly progressive. There is an old right-sided rib fracture.. IMPRESSION: Slightly progressive basilar interstitial thickening. No evidence of lobar consolidation. CT SCAN OF THE ABDOMEN AND PELVIS WITHOUT CONTRAST CLINICAL HISTORY: Abdominal pain. Syncope. COMPARISON STUDY: No previous studies for comparison. TECHNIQUE: CT scan of the abdomen and pelvis was performed from the lung bases to the proximal femurs. Images are reviewed in the axial, sagittal, and coronal planes. IV contrast was not administered for this examination. A dose lowering technique was utilized adhering to the principles of ALARA. CT DOSE: 1157.73 mGy.cm FINDINGS: Lower chest: There is bilateral bronchial wall thickening and mucous plugging with scattered tiny nodules. The findings are felt to be on an infectious/inflammatory basis. There is a tiny hiatal hernia Liver: The unenhanced liver is normal in size, contour, and attenuation. There is no intrahepatic biliary ductal dilatation. Gallbladder: Unremarkable. Spleen: Normal in size and attenuation. Pancreas: Unremarkable. Adrenal glands: Unremarkable. Kidneys: No renal, ureteral, or bladder calculi are visualized. Bowel: There are no transition zones indicate bowel obstruction. The appendix appears normal. There is no acute diverticulitis. There is mild fecal retention. Peritoneum: There is no intraperitoneal free air or abdominal ascites. Vasculature: There are moderate atheromatous calcifications present. There is no evidence of abdominal aortic aneurysm Adenopathy: None. Pelvic viscera: The uterus is surgically absent. There is an pessary present. There is a soft tissue nodule in the right perirectal region. Although nonspecific this could represent the patient's right ovary. Skeletal structures: No destructive osseous lesions are seen. IMPRESSION: 1. No evidence of bowel obstruction. No evidence of free air 2. No renal, ureteral, or bladder calculi identified 3. No evidence of acute diverticulitis. No evidence of acute appendicitis. CT head/brain wo con CLINICAL HISTORY: syncope COMPARISON STUDY: 09/18/2012 TECHNIQUE: Axial CT of the brain is performed from the vertex to the skull base. IV contrast was not administered for this examination. A dose lowering technique was utilized adhering to the principles of ALARA. CT DOSE: FINDINGS: No intra or extra-axial mass lesions are visualized. There is no CT evidence of acute cortical infarction. There is no evidence of midline shift. There is no acute hemorrhage. No calvarial fractures are visualized. There are patchy white matter hypodensities likely on a small vessel basis. There is an deep white matter infarct adjacent to the anterior aspect of the right lateral ventricle. Although not present 2012, this does not appear acute. There is no evidence of pathologic ventricular dilatation. There is no evidence of acute sinusitis IMPRESSION: No acute intracranial findings ECG Additional Comments: 08-MAR-2020 14:56:29 [facility]-EDSTAT ROUTINE RETRIEVAL Normal sinus rhythm Anterolateral infarct , age undetermined ST & T wave abnormality, consider inferior ischemia ECG When compared with ECG of 08-MAR-2020 14:10, (unconfirmed) Anterior infarct is now Present Anterolateral infarct is now Present QT has shortened Vent. rate 70 BPM MD interval 160 ms QRS duration 82 ms QT/QTc 314/339 ms P-R-T axes 79 73 101 Code Status & VTE Plan Code Status Conditional - NO INTUBATION Supervising Physician Co-Signing Physician Notes Attending Attestation & Admission Note: Pt seen/examined, chart reviewed, admission care plan d/w ARIADNA Perez. I agree w/ the gilbert components of her admission documentation. 74yo female - h/o breast ca s/p b/l mastectomy, COPD, significant 2nd-hand smoke exposure (), mother/father both w/ stroke - presents after having had a syncopal episode this am in her neighbor's yard. Had gone for 20 minute long walk which is customary for her. She notes she had worn a sweater during the walk. Had no chest pain, dyspnea, or palpitations during the walk. Just prior to passing out she felt a hot feeling on top of her head then had the event. Had loss of consciousness for several minutes. Neighbor saw whole event. No seizure activity by report. Patient denies any infectious symptoms in the days leading up to this event. Has felt well. c/o right scapular pain during my visit. PMH, PSH, allergies, meds, sochx, famhx - reviewed vitals - hypothermia at presentation - temp 34.9; now normothermia s/p warmer gen - NAD, a/o x 3 neck - no JVD mouth - tongue with ecchymoses over distal left tip but no bite pat; MM dry heart - RRR, s1 s2 lungs - scant rales bases; no wheeze abd - protuberant but NT, no HSM ext - no edema neuro - strength 5/5 x 4 exts labs - WBC 17 Cr 1.8 K 2.7 procal 0 lactate nl COVID-19 PCR negative EKG - my reading - NSR, anterolateral ST downsloping V5/V6 CTs reviewed cxr reviewed A/P: 1. syncope - had brief prodromal symptoms prior to event suggesting probable vasovagal etiology. Patient appeared volume depleted at presentation (MM dry, Cr elevated) in the setting of a long walk with sweater on during the warm summer weather likely the cause. Cannot rule out dysrhythmia. Cannot rule out ACS. Cannot rule out brewing sepsis. No signs/symptoms of stroke. No seizure activity noted during the event as entire event was witnessed. Hydrate. Serial trops. Telemetry. Echo. Antibiotics empirically while awaiting cultures. 2. hypothermia - resolved. Unusual presentation. Check TSH. Although does not appear septic need to cover for such. Broad-spectrum abx while awaiting cu ltures. 3. acute kidney injury - hydrate, bmp am. 4. right scapular pain s/p syncope w/ fall to ground - check right-sided rib series. Check right scapular films. r/o fractues. Lidoderm patches. 5. hypokalemia - replace IV, serial labs. 6. abnormal EKG - await trops and echo. 7. abnormal cxr, abnormal lung cuts from CT abd - patient asymptomatic for pulmonary infection. Uncertain etiology and uncertain significance. COVID-19 negative. Brewing atypical pneumonia? other? This will need f/u. Donald Hoyos MD PG Care Time/CCT Total # of Minutes Spent Total Time Spent with Patient: Total time spent is greater than 50% in coordination of care (as documented) at patient's floor/unit and/or counseling patient: Coding Level of Care Code 61651 Initial Inpt Care Lvl 3 Diagnoses Sepsis A41.9; R65.20; N17.9 Acute renal failure type: unspecified Sepsis acute organ dysfunction status: with acute organ dysfunction Sepsis type: sepsis due to unspecified organism Severe sepsis acute organ dysfunction type: acute renal failure Severe sepsis shock status: without septic shock Episode of syncope R55 Hypothermia T68.XXXA Encounter type: initial encounter MAILE (acute kidney injury) N17.9 Chronic obstructive pulmonary disease, unspecified J44.9 Breast cancer C50.912 Breast location: unspecified site of breast Estrogen receptor status: unspecified Laterality: left Patient sex: female H/O bilateral mastectomy Z90.13 Neuralgia M79.2 Osteoporosis M81.0 Vitamin D deficiency E55.9 Hypokalemia E87.6 DVT prophylaxis Z29.9 (1) Hypothermia Encounter type: initial encounter Qualified Code(s): T68.XXXA - Hypothermia, initial encounter (2) Breast cancer Breast location: unspecified site of breast Estrogen receptor status: unspecified Laterality: left Patient sex: female Qualified Code(s): C50.912 - Malignant neoplasm of unspecified site of left female breast (3) Sepsis Acute renal failure type: unspecified Sepsis acute organ dysfunction status: with acute organ dysfunction Sepsis type: sepsis due to unspecified organism Severe sepsis acute organ dysfunction type: acute renal failure Severe sepsis shock status: without septic shock Qualified Code(s): A41.9 - Sepsis, unspecified organism; R65.20 - Severe sepsis without septic shock; N17.9 - Acute kidney failure, unspecified
[2020-03-08 15:43] LABS: Appearance Urine Clear (Clear); Bilirubin Urine Negative (Negative); Blood Urine 1+ (Negative); Color Urine Yellow; Glucose Urine UA Negative (Negative); Ketones Urine Negative (Negative); Leukocyte Esterase Urine Negative (Negative); Nitrite Urine Negative (Negative); Protein Urine 1+ (Negative); Urobilinogen Urine Negative (Negative); pH Urine 6.5 (4.5-7.5)
[2020-03-08] MEDS ORDERED: POTASSIUM CHLORIDE 20 MEQ TABCR PO STA (15:44)
[2020-03-08] MEDS ORDERED: POTASSIUM ACETATE 20 MEQ in 0.9 % SODIUM CHLORIDE 100 ML IV STA (15:44)
[2020-03-08 15:55] LABS: Epithelial Cell Urine 0-5 /lpf (0-5); Hyaline Casts Urine 0-5 /lpf (0-5)
[2020-03-08 16:05] LABS: Bacteria Urine 2+ (Negative); RBC Urine 0-4 /hpf (0-4)
[2020-03-08] MEDS ORDERED: POTASSIUM CHLORIDE 10 MEQ / 100ML WTR IV ONE (16:18)
[2020-03-08] MEDS ORDERED: PROMETHAZINE HCL 6.25 MG in SODIUM CHLORIDE 0.9% 50 ML IV STA (16:49)
[2020-03-08] MEDS: POTASSIUM CHLORIDE / WTR 10 MEQ/100 ML PLCT IV SCH ×3 (16:59→22:00)
[2020-03-08] MEDS ORDERED: METOCLOPRAMIDE HCL INJ 5 MG/ML 2 ML VIAL IV STA (17:27)
[2020-03-08] MEDS ORDERED: PROMETHAZINE HCL 6.25 MG in SODIUM CHLORIDE 0.9% 50 ML IV PRN (20:05)
[2020-03-08] MEDS ORDERED: ACETAMINOPHEN 325 MG TAB PO PRN (20:05)
[2020-03-08] MEDS ORDERED: DAPTOMYCIN CONSULT ACTIVE PRN (20:05)
[2020-03-08] MEDS ORDERED: PROCHLORPERAZINE MALEATE 10 MG TAB PO PRN (20:05)
[2020-03-08] MEDS ORDERED: ONDANSETRON INJ 2 MG/ML 2 ML VIAL IV PRN (20:05)
[2020-03-08] MEDS: SODIUM CHLORIDE 0.9% 1000ML 1,000 ML IV SCH (20:54)
[2020-03-08 21:14] LABS: BUN Creatinine Ratio 15.5 (10-20); Blood Urea Nitrogen 24 mg/dl (7-18); Calcium 7.7 mg/dl (8.5-10.1); Carbon Dioxide 24 mmol/L (21-32); Chloride 117 mmol/L (98-107); Creatine Kinase 118 U/L (26-192); Creatinine Clr Calc Pharmacy 25.2 ml/min; Est GFR (African American) 39.3; Est GFR (Non-African American) 33.9; Glucose 113 mg/dl (70-99); Sodium 145 mmol/L (136-145); Troponin I < 0.015 ng/ml (0-0.045)
[2020-03-08 21:20] LABS: Potassium 4.1 mmol/L (3.5-5.1)
[2020-03-08] MEDS: guaiFENesin 600 MG TABCR PO SCH (22:47)
[2020-03-08] MEDS: LIDOCAINE 5% 1 PATCH TD SCH (22:47)
[2020-03-08] MEDS: HEPARIN SOD 5,000 UNIT/0.5 ML VIAL SQ SCH (22:49)
[2020-03-09] MEDS: ALBUTEROL HFA 8 GM INHALER INH SCH ×3 (01:06→10:04)
[2020-03-09] MEDS: HEPARIN SOD 5,000 UNIT/0.5 ML VIAL SQ SCH ×3 (05:17→21:10)
[2020-03-09] MEDS: SODIUM CHLORIDE 0.9% 1000ML 1,000 ML IV SCH ×2 (05:19→12:25)
[2020-03-09 05:57] LABS: Hematocrit (blood only) 41.5 % (37-47); Mean Corpuscular Hemoglobin 30.7 pg (25-34); Mean Corpuscular Hgb Conc 33.7 g/dL (32-36); Mean Platelet Volume 11.5 fL (7.4-10.4); Platelet Count 246 K/uL (130-400); RDW Coefficient of Variation 13.3 % (11.5-14.5); RDW Standard Deviation 44.1 fL (36.4-46.3); Red Blood Count 4.56 M/uL (4.2-5.4); White Blood Count 12.32 K/uL (4.8-10.8)
[2020-03-09 06:09] LABS: Albumin Level 3.3 gm/dl (3.4-5.0); BUN Creatinine Ratio 13.3 (10-20); Calcium 7.3 mg/dl (8.5-10.1); Creatinine Clr Calc Pharmacy 27.8 ml/min; Est GFR (African American) 44.2; Est GFR (Non-African American) 38.1; Potassium 3.8 mmol/L (3.5-5.1)
[2020-03-09 06:11] LABS: Bilirubin,Total 0.7 mg/dl (0.2-1); Globulin 3.4 gm/dl (2.5-4.0); Phosphorus 2.5 mg/dl (2.5-4.9); Total Protein 6.7 gm/dl (6.4-8.2)
--- NOTE | 2020-03-09 08:35 | XRay Report ---
XR scapula RT CLINICAL HISTORY: Right scapular pain status post trauma COMPARISON: None. DISCUSSION: There is a suspected cervical rib. There is a right seventh rib fracture. No scapular fra ctures are visualized. IMPRESSION: No scapular fracture identified. ACT 112: Negative or not required by law. Electronically signed by: Matthew Whitt M.D. 03/09/2020 8:33 AM
--- NOTE | 2020-03-09 08:50 | XRay Report ---
XR ribs RT min 2V CLINICAL HISTORY: Right posterior rib pain status post trauma COMPARISON: Chest x-ray dated 03/08/2020 DISCUSSION: No pneumothorax is visualized. There is a probable right-sided cervical rib. There is a r ight seventh rib fracture, likely old. No acute fractures are visualized. IMPRESSION: Right seventh rib fracture, likely old. No evidence of pneumothorax. ACT 112: Negative or not required by law. Electronically signed by: Matthew Whitt M.D. 03/09/2020 8:49 AM
[2020-03-09] MEDS ORDERED: DAPTOmycin 275 MG in SYRINGE 0 ML IV SCH (09:00)
[2020-03-09] MEDS: guaiFENesin 600 MG TABCR PO SCH ×3 (09:55→21:11)
[2020-03-09] MEDS ORDERED: ALBUTEROL HFA 8 GM INHALER INH PRN (10:46)
--- NOTE | 2020-03-09 13:03 | Hospitalist Progress Note ---
Date of Service March 09, 2020 Assessment & Plan (1) Episode of syncope: She had brief prodromal symptoms prior to event suggesting probable vasovagal etiology. Patient appeared volume depleted at presentation (MM dry, Cr elevated) in the setting of a long walk with sweater on during the warm summer weather likely the cause. Cannot rule out dysrhythmia. Perhaps brewing sepsis given hypothermia, UTI, leukocytosis No signs/symptoms of stroke. No seizure activity noted during the event as entire event was witnessed. - CT head negative ECHO without abnormalities Telemetry here with normal sinus rhythm, no arrhythmias Troponin negative x2 ECG with nonspecific ST and T wave changes in inferior and anterior leads, on repeat this morning similar Most likely seems vasovagal Now much improved with IV hydration and empiric treatment with antibiotics while awaiting cultures -Continue monitoring on telemetry for arrhythmia (2) Sepsis: Presented with hypothermia, leukocytosis, and syncope as below. With abnormal urinalysis and bilateral bronchial wall thickening and mucous plugging scattered tiny nodules at the bases of the lungs seen on CT of the abdomen/pelvis-question if has pneumonia although she is not having a cough at all -Hypothermia is now resolved. TSH was normal. Leukocytosis is now improved down to 12 Procalcitonin is negative, lactate was 1.9 on admission COVID-19- Urinalysis with 5-10 WBCs, 2+ bacteria, 1-5 WBC casts, urine culture no growth to date CT of the abd/pelvis lower lung field shows bilateral bronchial wall thickening and mucous plugging with scattered tiny nodules. The findings are felt to be on an infectious/inflammatory basis. There is mild fecal retention, consistent with her c/o constipation on and off for the past month -CXR reviewed shows similar -->slightly progressive basilar interstitial thickening. No evidence of lobar consolidation -Continue broad-spectrum antibiotics with cefepime and daptomycin -Follow blood cultures-no growth to date If cultures negative, would discontinue antibiotics after 48 hours -Follow chest x-ray again in the morning (3) Hypothermia: Now resolved, as above (4) MAILE (acute kidney injury): - Cr elveated at 1.8, BUN 29, appears that baseline is around 0.9-1.0 - UA with WBC casts which would be suggestive of interstitial or perhaps glomerular inflammation, also with 1+ protein, 1+ blood, 5-10 WBCs, 2+ bacteria, and hip uric acid crystals Creatinine is now improved down to 1.38 and BUN is down to 18 after hydration with IV fluids overnight Imaging of the kidneys on CT is normal -DC IV fluids Follow BMP Consider nephrology consultation if not improving or worsening (5) Hypokalemia: - 2.7 on admission, was replaced and is now normalized Could have also led to weakness and syncope, likely from dehydration Follow BMP (6) Rib fracture: With pain in the right posterior upper to mid back Secondary to fall Positive tenderness to palpation on examination Scapular x-ray and rib series show seventh rib fracture on the right, indeterminate age, but could be source of pain Continue lidocaine patches Tylenol as needed (7) Vitamin D deficiency: - Cont supplementation (8) Osteoporosis: - Cont vitamin D (9) Neuralgia: - Hx of shingles over the right eye and forehead >1 year ago, chronic, currently has pain there. (10) Chronic obstructive pulmonary disease, unspecified: - Pt reports following with a Dr. Lee in [place], but the last time was about 3 years ago. At that point she was previously on inhalers and medication, however has since stopped taking these meds. Pt suffers from chronic sinusitis and feels that she has been able to cope without medications. Her smokes chronically, not in the home, but she has second hand exposure. No acute issues Did require O2 in the ER, but is now weaned to room air With abnormal cxr, abnormal lung cuts from CT abd - patient asymptomatic for pulmonary infection. Uncertain etiology and uncertain significance. COVID-19 negative. Brewing atypical pneumonia? other? This will need f/u.-We will repeat chest x- ray in the morning (11) DVT prophylaxis: - teds, heparin subq CODE: Conditional code, agreeable to CPR, chest compressions, IV medication, defibrillation, bag mask. NO INTUBATION. Dispo: From home, continued stay, but if doing well and cultures negative, could likely discharge to home on Tuesday PT/OT consultations Admission and Anticipated Discharge Date Admission Date: March 08, 2020 Subjective Pt feeling much improved today, is hungry, no further N/V. No fevers/chills. Denies any chest pains or shortness of breath. She is still having some pain on the right side of her back from her fall. She denies cough. She denies any abdominal pains. She does admit prior to admission she was having some changes in her urine with foamy urine at times for the last week, but no dysuria or urinary frequency. She denies headache or dizziness. Tele with normal sinus rhythm with rates in the 70s Review of Systems Review of Systems: All systems reviewed & are unremarkable except as noted in HPI & below Physical Exam Constitutional: WD/WN, vitals as above Eyes: PERRL, conjunctivae normal, anicteric sclerae ENMT: external ear and nose normal, oropharynx normal (Except small purple ecchymosis on the tip of the left side of the tongue) Neck: trachea midline, no thyromegaly Respiratory: normal respiratory effort, lungs clear to auscultation Cardiovascular: RRR, no murmur, no edema Chest (Breasts): Chest: normal inspection of chest Gastrointestinal (Abdomen): normal bowel sounds, soft, nontender, no hepatosplenomegaly Musculoskeletal: Extremities: extremities normal to inspection; no cyanosis and no clubbing Positive tenderness to palpation over right posterior mid ribs without ecchymosis or crepitus Skin: no rashes, warm and dry Neurologic: moves all extremities and awake; no focal motor deficits Psychiatric: A+Ox3, euthymic affect Lymphatic: no lymphedema Results & Data Results & Data ([facility]) Vital Signs (Past 12 Hours) Vital Signs Temp Pulse Pulse Pulse Pulse Resp BP 03/09/20 12:26 66 158/75 H 03/09/20 12:04 36.7 C 03/09/20 11:32 58 L 03/09/20 11:25 70 16 190/76 H 03/09/20 08:09 36.3 C L 67 18 03/09/20 03:33 36.6 C 76 16 BP Pulse Ox 03/09/20 12:26 03/09/20 12:04 03/09/20 11:32 03/09/20 11:25 193/91 H 96 03/09/20 08:09 169/76 H 98 03/09/20 03:33 155/77 H 95 Laboratory Results 03/09/20 03/09/20 Range/Units 05:23 05:23 WBC 12.32 H (4.8-10.8) K/uL RBC 4.56 (4.2-5.4) M/uL Hgb 14.0 (12.0-16.0) g/dL Hct 41.5 (37-47) % MCV 91.0 (80-100) fL MCH 30.7 (25-34) pg MCHC 33.7 (32-36) g/dL RDW Std Deviation 44.1 (36.4-46.3) fL RDW Coeff of Endy 13.3 (11.5-14.5) % Plt Count 246 (130-400) K/uL MPV 11.5 H (7.4-10.4) fL Sodium 146 H (136-145) mmol/L Potassium 3.8 (3.5-5.1) mmol/L Chloride 118 H (98-107) mmol/L Carbon Dioxide 23 (21-32) mmol/L Anion Gap 5.0 (3-11) BUN 18 (7-18) mg/dl Creatinine 1.38 H (0.6-1.2) mg/dl Est Cr Clr Drug Dosing 27.8 ml/min Est GFR ( Amer) 44.2 Est GFR (Non-Af Amer) 38.1 BUN/Creatinine Ratio 13.3 (10-20) Glucose 88 (70-99) mg/dl Calcium 7.3 L (8.5-10.1) mg/dl Phosphorus 2.5 (2.5-4.9) mg/dl Magnesium 2.0 (1.8-2.4) mg/dl Total Bilirubin 0.7 (0.2-1) mg/dl AST 15 (15-37) U/L ALT 23 (12-78) U/L Alkaline Phosphatase 75 (45-117) U/L Total Protein 6.7 (6.4-8.2) gm/dl Albumin 3.3 L (3.4-5.0) gm/dl Globulin 3.4 (2.5-4.0) gm/dl Albumin/Globulin Ratio 1.0 (0.9-2) PG Care Time/CCT Total # of Minutes Spent Total Time Spent with Patient: Total time spent is greater than 50% in coordination of care (as documented) at patient's floor/unit and/or counseling patient: Coding Level of Care Code 84033 Subseq Hosp Care Lvl 3 Diagnoses Episode of syncope R55 Sepsis A41.9; R65.20; N17.9 Acute renal failure type: unspecified Sepsis acute organ dysfunction status: with acute organ dysfunction Sepsis type: sepsis due to unspecified organism Severe sepsis acute organ dysfunction type: acute renal failure Severe sepsis shock status: without septic shock Hypothermia T68.XXXA Encounter type: initial encounter MAILE (acute kidney injury) N17.9 Hypokalemia E87.6 Rib fracture S22.39XA Vitamin D deficiency E55.9 Osteoporosis M81.0 Neuralgia M79.2 Chronic obstructive pulmonary disease, unspecified J44.9 DVT prophylaxis Z29.9 (1) Hypothermia Encounter type: initial encounter Qualified Code(s): T68.XXXA - Hypothermia, initial encounter (2) Sepsis Acute renal failure type: unspecified Sepsis acute organ dysfunction status: with acute organ dysfunction Sepsis type: sepsis due to unspecified organism Severe sepsis acute organ dysfunction type: acute renal failure Severe sepsis shock status: without septic shock Qualified Code(s): A41.9 - Sepsis, unspecified organism; R65.20 - Severe sepsis without septic shock; N17.9 - Acute kidney failure, unspecified
[2020-03-09] MEDS ORDERED: CEFEPIME 1,000 MG in SYRINGE 0 ML IV SCH (15:00)
--- NOTE | 2020-03-09 15:55 | XCELERA ---
[id number]
[2020-03-09] MEDS: LIDOCAINE 5% 1 PATCH TD SCH (21:11)
--- NOTE | 2020-03-09 22:48 | Electrocardiogram Report ---
Test Reason : Blood Pressure : / mmHG Vent. Rate : 066 BPM Atrial Rate : 066 BPM P-R Int : 144 ms QRS Dur : 080 ms QT Int : 422 ms P-R-T Axes : 064 048 083 degrees QTc Int : 442 ms Normal sinus rhythm Nonspecific ST and T wave abnormality Abnormal ECG When compared with ECG of 30-JAN-2019 12:37, Nonspecific T wave abnormality, worse in Anterior leads Confirmed by Paolo Stephens ([id number]) on 03/09/2020 10:48:20 PM Referred By: REFERRED SELF Confirmed By:Paolo Stephens
--- NOTE | 2020-03-09 22:49 | Electrocardiogram Report ---
Test Reason : Blood Pressure : / mmHG Vent. Rate : 070 BPM Atrial Rate : 076 BPM P-R Int : 160 ms QRS Dur : 082 ms QT Int : 314 ms P-R-T Axes : 079 073 101 degrees QTc Int : 339 ms Normal sinus rhythm Anterolateral infarct , age undetermined Abnormal ECG When compared with ECG of 08-MAR-2020 14:10, Anterolateral infarct is now Present QT has shortened Nonspecific T wave abnormality is now Present in Anterior leads Confirmed by Paolo Stephens ([id number]) on 03/09/2020 10:49:25 PM Referred By: REFERRED SELF Confirmed By:Paolo Stephens
--- NOTE | 2020-03-09 23:57 | Electrocardiogram Report ---
Test Reason : Blood Pressure : / mmHG Vent. Rate : 063 BPM Atrial Rate : 063 BPM P-R Int : 160 ms QRS Dur : 080 ms QT Int : 420 ms P-R-T Axes : 084 066 092 degrees QTc Int : 429 ms Normal sinus rhythm Nonspecific ST and T wave abnormality Abnormal ECG When compared with ECG of 08-MAR-2020 14:56, Criteria for Anterolateral infarct are no longer Present QT has lengthened Confirmed by Paolo Stephens ([id number]) on 03/09/2020 11:57:36 PM Referred By: REFERRED SELF Confirmed By:Paolo Stephens
[2020-03-10] MEDS: HEPARIN SOD 5,000 UNIT/0.5 ML VIAL SQ SCH (05:14)
--- NOTE | 2020-03-10 08:13 | XRay Report ---
XR chest 2V PA/lateral HISTORY: 74 years-old Female f/u abnormal CXR follow-up study in a patient with bibasilar interstiti al coarsening COMPARISON: CT abdomen and pelvis and chest radiograph 03/08/2020 TECHNIQUE: PA and lateral views of the chest FINDINGS: Cardiac silhouette is normal in size. Calcific plaque of the thoracic arch. Unchanged mild interstiti al coarsening of the lung bases. No pneumothorax, pleural effusion or overt pulmonary edema. Degenera tive changes of the shoulders and spine. IMPRESSION: Mild persistent bibasilar interstitial coarsening, better evaluated on comparison CT abdo men and pelvis where there were tree-in-bud nodules suggestive of a nonspecific infectious or inflamm atory bronchiolitis. ACT 112: Negative or not required by law. The above report was generated using voice recognition software. It may contain grammatical, syntax o r spelling errors. Electronically signed by: Jaquan Ramon M.D. 03/10/2020 8:12 AM
[2020-03-10] MEDS: guaiFENesin 600 MG TABCR PO SCH (08:30)
[2020-03-10 08:35] LABS: Hematocrit (blood only) 41.7 % (37-47); Hemoglobin 14.1 g/dL (12.0-16.0); Mean Corpuscular Hemoglobin 30.7 pg (25-34); Mean Corpuscular Hgb Conc 33.8 g/dL (32-36); Mean Corpuscular Volume 90.7 fL (80-100); Mean Platelet Volume 11.2 fL (7.4-10.4); Platelet Count 250 K/uL (130-400); RDW Coefficient of Variation 13.2 % (11.5-14.5); RDW Standard Deviation 43.3 fL (36.4-46.3); White Blood Count 10.78 K/uL (4.8-10.8)
[2020-03-10 09:32] LABS: Albumin Level 3.3 gm/dl (3.4-5.0); BUN Creatinine Ratio 12.8 (10-20); Calcium 7.8 mg/dl (8.5-10.1); Creatinine Clr Calc Pharmacy 28.6 ml/min; Est GFR (African American) 45.8; Est GFR (Non-African American) 39.5; Potassium 3.4 mmol/L (3.5-5.1)
[2020-03-10 09:33] LABS: Bilirubin,Total 0.9 mg/dl (0.2-1); Globulin 3.4 gm/dl (2.5-4.0); Magnesium 2.1 mg/dl (1.8-2.4); Total Protein 6.7 gm/dl (6.4-8.2)
--- NOTE | 2020-03-10 09:44 | Discharge Summary ---
Date of Service March 10, 2020 Admission HPI Per Admitting Provider This is a 74 yo F with PMHx of COPD, hx breast cancer s/p bilateral mastectomy, HLD, who presents with acute ill feeling. She reports not feeling like herself for the past 3 to 4 days, feeling sweaty intermittently, flushed, but thought that this was due to humidity. Today she proceeded to go on a walk with her neighbor for ~1/4 mile, which during this felt well. At the end of her walk while they were standing and talking, she acutely felt flushed and passed out, falling to the ground. Did not hit her head. She does not remember feeling lightheaded or dizzy prior to this and came to within a few minutes. Neighbor called EMS which brought her to the ER. Once here she continues to feel extremely nauseous, vomiting at bedside even after receiving several doses of antiemetics via EMS. She admits to feeling abdominal distention, no specific pain. Pt has been constipated, last BM 3 days ago, but has been an issue for 1 month. She is currently having back pain and thinks it is because she fell today. Denies any recent fever or chills. Denies any recent travel, known COVID-19 contacts. She was recently in the cancer center for routine checkup with Dr. Crawley 1 week ago for her history of breast cancer in remission since having a bilateral mastectomy last January. She also notes that she has dealt with lifelong sinusitis, and previously had followed with a Dr. De Leon in [place] who gave her prescriptions for inhalers, but has not seen this provider in over 3 years. She does not use any inhalers or take any pulmonary related medications. Her of 45+ years smokes, but not in the home. As far as oral intake today patient had a cup of tea and a diet Dr. Valle, no water. She ate and drink normally yesterday, denies consumption of any raw or undercooked foods. Their home is hooked up to public water. Pt took her medications last evening as prescribed. Her is present at bedside. Pt noted to be hypothermic with Tmax of 34.9 on admission requiring bear hugger, elevated WBC of 17.36, hypokalemia K+ = 2.7, and MAILE with BUN 29 and Cr. 1.8. Principal Diagnosis Syncope due to dehydration, UTI Discharge Exam Constitutional WD/WN, vitals as above Eyes PERRL, conjunctivae normal, anicteric sclerae ENMT external ear and nose normal, oropharynx normal Neck trachea midline, no thyromegaly Respiratory normal respiratory effort, lungs clear to auscultation Cardiovascular RRR, no murmur, no edema Gastrointestinal (Abdomen) normal bowel sounds, soft, nontender, no hepatosplenomegaly Musculoskeletal no cyanosis or clubbing, extremities motor strength 5/5 Skin no rashes, warm and dry Neurologic patellar DTR's 2+ bilat, sensation intact and PERRL, EOMI, accommodation nl, no face palsy, no dysarthria Psychiatric A+Ox3, euthymic affect Lymphatic no cervical or axillary lymphadenopathy Discharge Data Allergies Allergy/AdvReac Type Severity Reaction Status Date / Time bee venom protein (honey bee) Allergy Unknown LOCALIZED Verified 03/08/20 14:40 SWELLING Penicillins Allergy Unknown CHILD Verified 03/08/20 14:44 tetracycline Allergy Unknown Hives Verified 03/08/20 14:40 egg Allergy ? Verified 03/08/20 14:44 erythromycin base AdvReac Unknown HALLUCINATE Verified 03/08/20 14:40 chocolate flavor AdvReac ? Verified 03/08/20 14:44 Consultations 03/08/20 15:18 ED Decision to Admit Stat 03/08/20 20:05 Consult Case Management - Discharge Planning Routine Ordered Studies 03/08/20 14:30 CT abd pelvis wo con Stat CT head/brain wo con Stat Hospital Course (1) Episode of syncope: She had brief prodromal symptoms prior to event suggesting probable vasovagal etiology. Patient appeared volume depleted at presentation (MM dry, Cr elevated) in the setting of a long walk with sweater on during the warm summer weather likely the cause. Cannot rule out dysrhythmia. Perhaps brewing sepsis given hypothermia, UTI, leukocytosis No signs/symptoms of stroke. No seizure activity noted during the event as entire event was witnessed. - CT head negative ECHO without abnormalities Telemetry here with normal sinus rhythm, no arrhythmias Troponin negative x2 ECG with nonspecific ST and T wave changes in inferior and anterior leads, on repeat this morning similar Most likely seems vasovagal no further symptoms after aggressive IV fluids, safe to be discharged to home instructed patient to stay well hydrated, treat infections, avoid excessive time in the heat that preceded this fall (2) Sepsis: Presented with hypothermia, leukocytosis, and syncope as below. With abnormal urinalysis and bilateral bronchial wall thickening and mucous plugging scattered tiny nodules at the bases of the lungs seen on CT of the abdomen/pelvis-question if has pneumonia although she is not having a cough at all COVID-19- Urinalysis with 5-10 WBCs, 2+ bacteria, 1-5 WBC casts, urine culture no growth to date CT of the abd/pelvis lower lung field shows bilateral bronchial wall thickening and mucous plugging with scattered tiny nodules. The findings are felt to be on an infectious/inflammatory basis. There is mild fecal retention, consistent with her c/o constipation on and off for the past month -CXR reviewed shows similar -->slightly progressive basilar interstitial thickening. No evidence of lobar consolidation treated with cefepime and daptomycin -Follow blood cultures-no growth to date will discharge on a course of Cefdinir to cover lungs and urine stay well hydrated, well nourished, get rest (3) Hypothermia: Now resolved, as above, due to infection (4) MAILE (acute kidney injury): - Cr elveated at 1.8, BUN 29, appears that baseline is around 0.9-1.0 - UA with WBC casts which would be suggestive of interstitial or perhaps glomerular inflammation, also with 1+ protein, 1+ blood, 5-10 WBCs, 2+ bacteria, and hip uric acid crystals Creatinine down to 1.2, making adequate urine, electrolytes stable d/c to home, stay well hydrated (5) Hypokalemia: - 2.7 on admission, was replaced and is now normalized Could have also led to weakness and syncope, likely from dehydration (6) Rib fracture: With pain in the right posterior upper to mid back Secondary to fall Positive tenderness to palpation on examination Scapular x-ray and rib series show seventh rib fracture on the right, indeterminate age, but could be source of pain Continue lidocaine patches, prescription provided Tylenol as needed (7) Vitamin D deficiency: - Cont supplementation (8) Osteoporosis: - Cont vitamin D (9) Neuralgia: - Hx of shingles over the right eye and forehead >1 year ago, chronic, currently has pain there. (10) Chronic obstructive pulmonary disease, unspecified: - Pt reports following with a Dr. Lee in [place], but the last time was about 3 years ago. At that point she was previously on inhalers and medication, however has since stopped taking these meds. Pt suffers from chronic sinusitis and feels that she has been able to cope without medications. Her smokes chronically, not in the home, but she has second hand exposure. No acute issues Did require O2 in the ER, but is now weaned to room air Total Time Total Time Spent Total Time Spent (In Minutes): 32 minutes Total Time Includes: Examination of the Patient, Discharge Planning and Med ication Reconciliation Discharge Plan Discharge Items Patient Disposition: Home - Home Health Services Reason For Visit: HYPOTHERMIA,ACUTE N/V,SYNCOPAL EPISODE Discharge Diagnosis: Syncope Pneumonia Dehydration Acute kidney injury Condition on Discharge: Good Goals: stay well rested, well hydrated, improve strength complete course of antibiotics Activity: Resume your previous activity Weightbearing: Full weightbearing Non-emergency contact: Primary Care Provider Call non-emergency contact if: you have any medication questions, your symptoms worsen and you have a fever Follow-up/Referrals: Lona Turner CRNP [Primary Care Provider] - 03/12/20 1:30 pm (Please follow up with RILEY Cardona at [facility] on Tuesday03/12/2020 at 1:30 pm. Please arrive to the office 15 minutes early for your appointment. If you are unable to keep this appointment, please call the office to reschedule at [phone].) Diet: Regular Addtl Attending Provider Instructions: Medications: CEFDINIR: 300MG twice a day for 5 more days, will cover lungs as well as urine LIDODERM: use patches for 12 hours at a time as needed for rib pain from the fall Syncope (passing out), dehydration, acute kidney injury, possible cystitis and pneumonia much improved with IV fluids and antibiotics CXR still with some consolidative changes in the bases, complete a course of antibiotics no growth on blood or urine cultures stay well hydrated, get rest, participate with therapy follow up with your primary care provider in a week for follow up kidney function nearly back to normal with fluids avoid going out in the heat for extended periods of time until you are fully recovered Pending Studies at Discharge: No Stand-Alone Forms: My [facility] VetCompare, Smoking Cessation Medications and DC Order Prescriptions: New lidocaine 5 % Adhesive Patch,Medicated 1 patch transdermal QPM 7 Days Qty: 7 RF: 0 cefdinir 300 mg capsule 300 mg PO BID 5 Days Qty: 10 RF: 0 Continued atorvastatin 40 mg Tablet 40 mg PO QDD RF: 0 acetaminophen 500 mg Tablet 500 mg PO Q6H PRN (Reason: Pain) RF: 0 cholecalciferol (vitamin D3) 125 mcg (5,000 unit) capsule 125 mcg PO QDD RF: 0 Discharge Orders: Discharge Order (Routine); Ordered 03/10/20 Ordered By: Arvind Lyles Admission Data Admit Date/Time: 03/08/20 16:21 Attending Provider: Arvind Lyles Admit Provider: Donald Hoyos Primary Care Provider: Lona Turner Other Providers: Donald Hoyos ; [facility] Other Interventions: Discharge Summary Assessment (RN) Last Done: 03/10/20 13:14 Coding Level of Care Code D/C Day Management >30 mins Diagnoses Episode of syncope R55 Sepsis A41.9; R65.20; N17.9 Acute renal failure type: unspecified Sepsis acute organ dysfunction status: with acute organ dysfunction Sepsis type: sepsis due to unspecified organism Severe sepsis acute organ dysfunction type: acute renal failure Severe sepsis shock status: without septic shock Hypothermia T68.XXXA Encounter type: initial encounter MAILE (acute kidney injury) N17.9 Hypokalemia E87.6 Rib fracture S22.39XA Vitamin D deficiency E55.9 Osteoporosis M81.0 Neuralgia M79.2 Chronic obstructive pulmonary disease, unspecified J44.9
[2020-03-10] MEDS ORDERED: CHOLECALCIFEROL 1,000 UNITS 25 MCG TAB PO SCH (16:30)
[2020-03-11] MEDS ORDERED: DAPTOmycin 325 MG in SYRINGE 0 ML IV SCH (06:00)
== END 2020-03-10 13:50 | disposition home health service (06) | DRG 872 ==
LOC: ED 14:03 → INTOOBSV 16:21 → 2S 16:21 → SUATTDRO 16:21 → 2S 18:21